=== PATIENT | male | born 1990 | race Caucasian/White ===

== ENCOUNTER 2018-03-10 18:56 | Emergency (ER) | payer SELFPAY ==
--- NOTE | 2018-03-10 19:54 | RAD REPORT ---
EXAM DESCRIPTION: RAD - Hand Right 3 View - 03/10/2018 7:45 pm CLINICAL HISTORY: Pain and swelling, fourth digit. COMPARISON: None. FINDINGS: Tuft fracture is present involving the distal fourth digit. Mild soft tissue swelling is p resent.
--- NOTE | 2018-03-10 20:00 | ER ---
Nurse's Notes [facility] Name: Patrick Randolph Jr Age: 27 yrs Sex: Male : 1990 Arrival Date: 03/10/2018 Time: 18:57 Bed 12 Private MD: Diagnosis: Nondisplaced fracture of distal phalanx of finger-tuft Presentation: 03/10 19:22 Presenting complaint: Patient states: "I smashed my finger tip (right ringer) at work lk1 today between a took and a piece of pipe. I thought it was fine, but now its turning black and its cold. I can feel a lot of pressure in my hand.". Transition of care: patient was not received from another setting of care. Onset of symptoms was March 10, 2018 at 09:00. Initial Sepsis Screen: Does the patient meet any 2 criteria? No. Patient's initial sepsis screen is negative. Does the patient have a suspected source of infection? No. Patient's initial sepsis screen is negative. Care prior to arrival: None. 19:22 Method Of Arrival: Ambulatory lk1 19:22 Acuity: JUANIAT 3 lk1 Triage Assessment: 19:24 General: Appears in no apparent distress. Behavior is calm, cooperative, appropriate lk1 for age. Pain: Complains of pain in palmar aspect of distal phalanx of right ring finger Pain currently is 7 out of 10 on a pain scale. Musculoskeletal: Swelling present in palmar aspect of distal phalanx of right ring finger. Injury Description: Crush injury sustained to palmar aspect of distal phalanx of right ring finger. Historical: - Allergies: 19:24 No Known Allergies; lk1 - PMHx: 19:24 anger issues; lk1 - PSHx: 19:24 None; lk1 - Immunization history:: Adult Immunizations up to date. - Social history:: Smoking status: Patient/guardian denies using tobacco. Screenin:00 Abuse screen: Denies threats or abuse. Denies injuries from another. Nutritional aj1 screening: No deficits noted. Tuberculosis screening: No symptoms or risk factors identified. 20:33 Fall Risk None identified. aj1 Assessment: 20:00 General: Appears in no apparent distress. uncomfortable, Behavior is calm, cooperative, aj1 appropriate for age. Pain: Complains of pain in palmar aspect of distal phalanx of right ring finger Pain does not radiate. Pain currently is 10 out of 10 on a pain scale. Quality of pain is described as pressure, throbbing. Neuro: Level of Consciousness is awake, alert, obeys commands, Oriented to person, place, time, situation, Speech is normal, Facial symmetry appears normal. Cardiovascular: Patient's skin is warm and dry. Respiratory: Airway is patent Respiratory effort is even, unlabored, Respiratory pattern is regular, symmetrical. GI: No signs and/or symptoms were reported involving the gastrointestinal system. : No signs and/or symptoms were reported regarding the genitourinary system. EENT: No signs and/or symptoms were reported regarding the EENT system. Derm: Bruising that is dark purple, on palmar aspect of distal phalanx of right ring finger swelling noted to palmar aspect of distal phalanx of right ring finger. Musculoskeletal: Range of motion: limited in DIP of right ring finger. Vital Signs: 19:25 BP 139 / 90; Pulse 78; Resp 14; Temp 97.9(TE); Pulse Ox 99% on R/A; Weight 71.67 kg lk1 (R); Height 5 ft. 7 in. (170.18 cm) (R); Pain 7/10; 19:25 Body Mass Index 24.75 (71.67 kg, 170.18 cm) lk1 ED Course: 18:57 Patient arrived in ED. sb2 19:23 Triage completed. lk1 19:26 Arm band placed on right wrist. lk1 19:42 Patient moved to radiology. bb2 19:42 X-ray completed. Patient tolerated procedure well. bb2 19:42 Hand Right 3 View XRAY In Process Unspecified. EDMS 19:44 Patient moved back from radiology. bb2 19:50 Ben Ambrose MD is Attending Physician. snw 19:50 [facility]C [facility] snw 19:51 Cindy Claros RN is Primary Nurse. aj1 20:00 Patient has correct armband on for positive identification. Bed in low position. Call aj1 light in reach. Side rails up X 1. 20:00 No provider procedures requiring assistance completed. Patient did not have IV access aj1 during this emergency room visit. finger splint applied to right ring finger. Administered Medications: 20:15 Drug: [place] 10 mg-325 mg 1 tabs Route: PO; aj1 20:29 Follow up: Response: No adverse reaction aj1 Outcome: 19:58 Discharge ordered by . ann 20:33 Discharged to home ambulatory. aj1 20:33 Condition: good 20:33 Discharge instructions given to patient, Instructed on discharge instructions, follow up and referral plans. medication usage, Demonstrated understanding of instructions, follow-up care, medications, Prescriptions given X 1. 20:33 Patient left the ED. aj1 Signatures: Dispatcher [employer] EDCindy Ramos, RN RN aj1 Asha Hayden, TECHNICAL STENOGRAPHER-C TECHNICAL STENOGRAPHER-Csnw Shante Lopez RN RN lk1 Paulina Ortiz bb2 Paola Kauffman2
--- NOTE | 2018-03-10 20:00 | EDPHYS ---
Physician Documentation [facility] Name: Patrick Randolph Jr Age: 27 yrs Sex: Male : 1990 Arrival Date: 03/10/2018 Time: 18:57 Bed 12 Private MD: ED Physician Ben Ambrose HPI: 03/10 20:08 This 27 yrs old Male presents to ER via Ambulatory with complaints of Finger snw Injury. 20:08 The patient or guardian reports a contusion, swelling, tenderness. The complaints snw affect the palmar aspect of distal phalanx of right ring finger. Context: The problem was sustained at work, resulted from a crush injury. Onset: The symptoms/episode began/occurred suddenly, today. Associated signs and symptoms: The patient has no apparent associated signs or symptoms. Severity of symptoms: At their worst the symptoms were severe. The patient has not experienced similar symptoms in the past. It is unknown whether or not the patient has recently seen a physician. Historical: - Allergies: 19:24 No Known Allergies; lk1 - PMHx: 19:24 anger issues; lk1 - PSHx: 19:24 None; lk1 - Immunization history:: Adult Immunizations up to date. - Social history:: Smoking status: Patient/guardian denies using tobacco. ROS: 20:03 Constitutional: Negative for fever, chills, and weight loss, Eyes: Negative for injury, snw pain, redness, and discharge, ENT: Negative for injury, pain, and discharge, Neck: Negative for injury, pain, and swelling, Cardiovascular: Negative for chest pain, palpitations, and edema, Respiratory: Negative for shortness of breath, cough, wheezing, and pleuritic chest pain, Abdomen/GI: Negative for abdominal pain, nausea, vomiting, diarrhea, and constipation, Back: Negative for injury and pain, : Negative for injury, bleeding, discharge, and swelling, Skin: Negative for injury, rash, and discoloration, Neuro: Negative for headache, weakness, numbness, tingling, and seizure. 20:03 MS/extremity: Positive for injury or acute deformity, ecchymosis, pain, of the palmar aspect of distal phalanx of right ring finger. Exam: 20:01 Constitutional: This is a well developed, well nourished patient who is awake, alert, snw and in no acute distress. Head/Face: Normocephalic, atraumatic. Eyes: Pupils equal round and reactive to light, extra-ocular motions intact. Lids and lashes normal. Conjunctiva and sclera are non-icteric and not injected. Cornea within normal limits. Periorbital areas with no swelling, redness, or edema. ENT: Nares patent. No nasal discharge, no septal abnormalities noted. Tympanic membranes are normal and external auditory canals are clear. Oropharynx with no redness, swelling, or masses, exudates, or evidence of obstruction, uvula midline. Mucous membranes moist. Neck: Trachea midline, no thyromegaly or masses palpated, and no cervical lymphadenopathy. Supple, full range of motion without nuchal rigidity, or vertebral point tenderness. No Meningismus. Chest/axilla: Normal chest wall appearance and motion. Nontender with no deformity. No lesions are appreciated. Cardiovascular: Regular rate and rhythm with a normal S1 and S2. No gallops, murmurs, or rubs. Normal PMI, no JVD. No pulse deficits. Respiratory: Lungs have equal breath sounds bilaterally, clear to auscultation and percussion. No rales, rhonchi or wheezes noted. No increased work of breathing, no retractions or nasal flaring. Abdomen/GI: Soft, non-tender, with normal bowel sounds. No distension or tympany. No guarding or rebound. No evidence of tenderness throughout. Back: No spinal tenderness. No costovertebral tenderness. Full range of motion. MS/ Extremity: Pulses equal, no cyanosis. Clubbing of all fingers, purple ecchymosis to fourth right fingertip. tenderness. Neurovascular intact. Full, normal range of motion. Neuro: Awake and alert, GCS 15, oriented to person, place, time, and situation. Cranial nerves II-XII grossly intact. Motor strength 5/5 in all extremities. Sensory grossly intact. Cerebellar exam normal. Normal gait. Psych: Awake, alert, with orientation to person, place and time. Behavior, mood, and affect are within normal limits. Vital Signs: 19:25 BP 139 / 90; Pulse 78; Resp 14; Temp 97.9(TE); Pulse Ox 99% on R/A; Weight 71.67 kg lk1 (R); Height 5 ft. 7 in. (170.18 cm) (R); Pain 7/10; 19:25 Body Mass Index 24.75 (71.67 kg, 170.18 cm) lk1 MDM: 19:50 Patient medically screened. snw 20:07 Data reviewed: vital signs, nurses notes. Data interpreted: Pulse oximetry: on room air snw is 99 %. Interpretation: normal. Counseling: I had a detailed discussion with the patient and/or guardian regarding: the historical points, exam findings, and any diagnostic results supporting the discharge/admit diagnosis, the presence of at least one elevated blood pressure reading (>120/80) during this emergency department visit, radiology results, the need for outpatient follow up, to return to the emergency department if symptoms worsen or persist or if there are any questions or concerns that arise at home. Special discussion: I have referred the patient to see his PCP for further evaluation of high blood pressure. Based on the history and exam findings, there is no indication for further emergent testing or inpatient evaluation. I discussed with the patient/guardian the need to see the orthopedic surgeon for further evaluation of the symptoms. I discussed with the patient/guardian the need to see the primary care provider for further evaluation of the symptoms. 03/10 19:27 Order name: Hand Right 3 View XRAY; Complete Time: 19:57 lk1 03/10 19:58 Order name: Splint - Finger; Complete Time: 20:15 snw Administered Medications: 20:15 Drug: [place] 10 mg-325 mg 1 tabs Route: PO; aj1 20:29 Follow up: Response: No adverse reaction aj1 Disposition: 03/10/18 19:58 Discharged to Home. Impression: Nondisplaced fracture of distal phalanx of finger - tuft. - Condition is Stable. - Discharge Instructions: Elastic Bandage and RICE, Cast or Splint Care, Crush Injury, Fingers or Toes, Finger Fracture. - Prescriptions for Motrin IB 200 mg Oral Tablet - take 2 tablet by ORAL route every 6 hours As needed as needed with food; 40 tablet. - Work release form, Medication Reconciliation Form, Thank You Letter, Antibiotic Education, Prescription Opioid Use form. - Follow up: Private Physician; When: 2 - 3 days; Reason: Recheck today's complaints, Continuance of care, Re-evaluation by your physician. Follow up: Emergency Department; When: As needed; Reason: Worsening of condition. Addendum: 03/13/2018 07:40 Co-signature as Attending Physician, Ben Ambrose MD I agree with the assessment and c lima plan of care. Signatures: Dispatcher [employer] Cindy Rivas, RN RN aj1 Ben Ambrose MD MD cha Therrien, Shelly, SUGAR TRUCKER-C SUGAR TRUCKER-Csnw Shante Lopez, RN RN lk1 Corrections: (The following items were deleted from the chart) 03/10 20:33 19:58 03/10/2018 19:58 Discharged to Home. Impression: Nondisplaced fracture of distal aj1 phalanx of finger - tuft. Condition is Stable. Forms are Medication Reconciliation Form, Thank You Letter, Antibiotic Education, Prescription Opioid Use. Follow up: Private Physician; When: 2 - 3 days; Reason: Recheck today's complaints, Continuance of care, Re-evaluation by your physician. Follow up: Emergency Department; When: As needed; Reason: Worsening of condition. snw
[2018-03-10] MEDS ORDERED: HYDROCODONE/APAP 10/325 TAB ONE (20:04)
== END 2018-03-10 20:33 | disposition home or self-care (01) ==
LOC: ER 18:56
DX: S62.664A Nondisplaced fracture of distal phalanx of right ring finger, initial encounter for closed fracture (principal); W23.0XXA Caught, crushed, jammed, or pinched between moving objects, initial encounter; Y93.89 Activity, other specified; Y92.69 Other specified industrial and construction area as the place of occurrence of the external cause; Y99.0 Civilian activity done for income or pay
CPT/HCPCS: 99284

== ENCOUNTER 2018-06-20 18:42 | Emergency (ER) | payer SELFPAY ==
[2018-06-20] MEDS ORDERED: CLINDAMYCIN HCL 150 MG CAP ONE (20:08)
[2018-06-20] MEDS ORDERED: KETOROLAC 30 MG/ML INJ ONE (20:08)
--- NOTE | 2018-06-20 20:17 | ER ---
Nurse's Notes [facility] Name: Patrick Randolph Jr Age: 28 yrs Sex: Male : 1990 Arrival Date: 06/20/2018 Time: 18:49 Bed 12 Private MD: GIULIANA PEREZ Diagnosis: Otitis externa Presentation: 06/20 18:56 Presenting complaint: Patient states: Left ear pain since , patient states ear lp1 is hot to touch, pain worsening; Denies any fever. Transition of care: patient was not received from another setting of care. Onset of symptoms was June 20, 2018. Risk Assessment: Do you want to hurt yourself or someone else? Patient reports no desire to harm self or others. Initial Sepsis Screen: Does the patient meet any 2 criteria? No. Patient's initial sepsis screen is negative. Does the patient have a suspected source of infection? No. Patient's initial sepsis screen is negative. Care prior to arrival: None. 18:56 Method Of Arrival: Ambulatory lp1 18:56 Acuity: JUANITA 5 lp1 Historical: - Allergies: 18:59 No Known Allergies; lp1 - Home Meds: 18:59 Fluoxetine Oral [Active]; lp1 - PMHx: 18:59 anger issues; lp1 - PSHx: 18:59 None; lp1 - Immunization history:: Adult Immunizations up to date. - Social history:: Smoking status: Patient/guardian denies using tobacco. - Ebola Screening: : No symptoms or risks identified at this time. Screenin:05 Abuse screen: Denies threats or abuse. Denies injuries from another. Nutritional aj screening: No deficits noted. Tuberculosis screening: No symptoms or risk factors identified. Fall Risk None identified. Assessment: 19:05 General: Appears in no apparent distress. comfortable, Behavior is calm, cooperative, aj appropriate for age. Pain: Complains of pain in left ear. Neuro: Level of Consciousness is awake, alert, obeys commands, Oriented to person, place, time, situation, Appropriate for age. Respiratory: Airway is patent Respiratory effort is even, unlabored, Respiratory pattern is regular, symmetrical. EENT: Reports pain in left ear. Derm: Skin is intact, is healthy with good turgor, Skin is pink, warm \T\ dry. normal. 20:28 Reassessment: Patient appears in no apparent distress at this time. No changes from aj previously documented assessment. Patient and/or family updated on plan of care and expected duration. Pain level reassessed. Patient is alert, oriented x 3, equal unlabored respirations, skin warm/dry/pink. Patient states feeling better. Patient states symptoms have improved. Vital Signs: 18:58 BP 147 / 92; Pulse 67; Resp 16; Temp 98.1(O); Pulse Ox 97% on R/A; Weight 71.67 kg; lp1 Height 5 ft. 7 in. (170.18 cm); Pain 8/10; 20:28 BP 141 / 87; Pulse 67; Resp 19; Pulse Ox 99% on R/A; aj 18:58 Body Mass Index 24.75 (71.67 kg, 170.18 cm) lp1 ED Course: 18:49 Patient arrived in ED. sb2 18:49 GIULIANA PEREZ is Private Physician. sb2 18:57 Triage completed. lp1 18:57 Arm band placed on left wrist. lp1 19:00 Peyton Monk RN is Primary Nurse. aj 19:05 Patient has correct armband on for positive identification. aj 19:05 No provider procedures requiring assistance completed. aj 19:20 Alfonso Tabor MD is Attending Physician. tw4 20:16 GIULIANA PEREZ is Referral Physician. tw4 20:28 Patient did not have IV access during this emergency room visit. aj Administered Medications: 20:08 Drug: TORadol 60 mg Route: IM; Site: left gluteus; aj 20:29 Follow up: Response: Pain is decreased aj 20:08 Drug: Cleocin 300 mg Route: PO; aj 20:29 Follow up: Response: No adverse reaction aj Outcome: 20:17 Discharge ordered by . tw4 20:28 Discharged to home ambulatory, with friend. aj 20:28 Condition: good 20:28 Discharge instructions given to patient, family, Instructed on discharge instructions, follow up and referral plans. medication usage, Demonstrated understanding of instructions, follow-up care, medications, Prescriptions given X 2. 20:29 Patient left the ED. aj Signatures: Peyton Monk, RN RN aj Zoraida Cardenas RN RN 1 Alfonso Tabor MD MD tw4 Paola Kauffman 2
--- NOTE | 2018-06-20 20:17 | EDPHYS ---
Physician Documentation [facility] Name: Patrick Randolph Jr Age: 28 yrs Sex: Male : 1990 Arrival Date: 06/20/2018 Time: 18:49 Bed 12 Private MD: GIULIANA PEREZ ED Physician Alfonso Tabor HPI: 06/20 20:13 This 28 yrs old Male presents to ER via Ambulatory with complaints of Ear tw4 Pain. 20:13 The patient presents with pain, that is acute. The complaints affect the left ear. tw4 Onset: The symptoms/episode began/occurred 5 day(s) ago. Modifying factors: The symptoms are alleviated by nothing, the symptoms are aggravated by nothing. Associated signs and symptoms: The patient has no apparent associated signs or symptoms. Severity of symptoms: At their worst the symptoms were moderate in the emergency department the symptoms are unchanged. The patient has not experienced similar symptoms in the past. Historical: - Allergies: 18:59 No Known Allergies; lp1 - Home Meds: 18:59 Fluoxetine Oral [Active]; lp1 - PMHx: 18:59 anger issues; lp1 - PSHx: 18:59 None; lp1 - Immunization history:: Adult Immunizations up to date. - Social history:: Smoking status: Patient/guardian denies using tobacco. - Ebola Screening: : No symptoms or risks identified at this time. ROS: 20:13 Constitutional: Negative for fever, chills, and weight loss, Cardiovascular: Negative tw4 for chest pain, palpitations, and edema, Respiratory: Negative for shortness of breath, cough, wheezing, and pleuritic chest pain, Abdomen/GI: Negative for abdominal pain, nausea, vomiting, diarrhea, and constipation. 20:13 ENT: Positive for ear pain, Negative for injury or acute deformity, drainage from ear(s), Teeth pain tinnitus, nasal discharge, rhinorrhea. Exam: 20:13 Constitutional: This is a well developed, well nourished patient who is awake, alert, tw4 and in no acute distress. Head/Face: Normocephalic, atraumatic. 20:13 Cardiovascular: Regular rate and rhythm with a normal S1 and S2. No gallops, murmurs, or rubs. Normal PMI, no JVD. No pulse deficits. Respiratory: Lungs have equal breath sounds bilaterally, clear to auscultation and percussion. No rales, rhonchi or wheezes noted. No increased work of breathing, no retractions or nasal flaring. Abdomen/GI: Soft, non-tender, with normal bowel sounds. No distension or tympany. No guarding or rebound. No evidence of tenderness throughout. 20:13 ENT: External ear(s): are unremarkable, Ear canal(s): erythema, that is moderate, of the left canal. Vital Signs: 18:58 BP 147 / 92; Pulse 67; Resp 16; Temp 98.1(O); Pulse Ox 97% on R/A; Weight 71.67 kg; lp1 Height 5 ft. 7 in. (170.18 cm); Pain 8/10; 20:28 BP 141 / 87; Pulse 67; Resp 19; Pulse Ox 99% on R/A; aj 18:58 Body Mass Index 24.75 (71.67 kg, 170.18 cm) lp1 MDM: 19:20 Patient medically screened. tw4 20:13 Differential diagnosis: otitis media, otitis externa, ruptured TM. Data reviewed: vital tw4 signs, nurses notes. Counseling: I had a detailed discussion with the patient and/or guardian regarding: the historical points, exam findings, and any diagnostic results supporting the discharge/admit diagnosis. Special discussion: I discussed with the patient/guardian in detail that at this point there is no indication for admission to the hospital. It is understood, however, that if the symptoms persist or worsen the patient needs to return immediately for re-evaluation. Administered Medications: 20:08 Drug: TORadol 60 mg Route: IM; Site: left gluteus; aj 20:29 Follow up: Response: Pain is decreased aj 20:08 Drug: Cleocin 300 mg Route: PO; aj 20:29 Follow up: Response: No adverse reaction aj Disposition: 06/20/18 20:17 Discharged to Home. Impression: Otitis externa. - Condition is Stable. - Discharge Instructions: Otitis Externa. - Prescriptions for Augmentin 875- 125 mg Oral Tablet - take 1 tablet by ORAL route every 12 hours for 10 days; 20 tablet. Ibuprofen 800 mg Oral Tablet - take 1 tablet by ORAL route every 8 hours As needed take with food; 30 tablet. - Medication Reconciliation Form, Thank You Letter, Antibiotic Education, Prescription Opioid Use form. - Follow up: GIULIANA PEREZ; When: Upon discharge from the Emergency Department; Reason: Further diagnostic work-up, Recheck today's complaints, Continuance of care. - Problem is new. - Symptoms have improved. Signatures: Peyton Monk, RN RN Zoraida Workman RN RN lp1 Alfonso Tabor MD MD tw4 Corrections: (The following items were deleted from the chart) 20:29 20:17 06/20/2018 20:17 Discharged to Home. Impression: Otitis externa. Condition is aj Stable. Forms are Medication Reconciliation Form, Thank You Letter, Antibiotic Education, Prescription Opioid Use. Follow up: GIULIANA PEREZ; When: Upon discharge from the Emergency Department; Reason: Further diagnostic work-up, Recheck today's complaints, Continuance of care. Problem is new. Symptoms have improved. tw4
== END 2018-06-20 20:29 | disposition home or self-care (01) ==
LOC: ER 18:42
DX: H60.92 Unspecified otitis externa, left ear (principal)
CPT/HCPCS: 96372; 99283

== ENCOUNTER 2018-07-30 18:30 | Emergency (ER) | payer SELFPAY ==
[2018-07-30] MEDS ORDERED: ONDANSETRON 4 MG/2 ML VIAL ONE (19:37)
[2018-07-30] MEDS ORDERED: MORPHINE 4 MG/ML SYR ONE (19:37)
[2018-07-30 20:00] LABS: Absolute Lymphocytes (CBC) 2.7 K/uL (0.7-4.9); Absolute Monocytes 0.7 K/uL (0.1-1.3); Basophils % 0.7 % (0-1.3); Lymphocytes % 34.8 % (15.3-44.8); MCH 32.5 pg (27.0-35.0); MCV 94.5 fL (80-100); MPV 8.2 fL (7.6-11.3); Monocytes % 9.1 % (3.3-12.3); RBC Red Blood Cell Count 4.24 M/uL (4.33-5.43)
[2018-07-30 20:08] LABS: ALT/SGPT 27 U/L (12-78); AST/SGOT 15 U/L (15-37); Albumin 3.6 g/dL (3.4-5.0); Alkaline Phosphatase 66 U/L (45-117); BUN Blood Urea Nitrogen 11 mg/dL (7-18); Bicarbonate 29 mmol/L (21-32); Bilirubin Direct < 0.1 mg/dL (0-0.2); Bilirubin Total 0.2 mg/dL (0.2-1.0); Glucose Level 86 mg/dL (74-106); Lipase 115 U/L (73-393); Potassium 4.3 mmol/L (3.5-5.1); Protein, Total 7.3 g/dL (6.4-8.2); Sodium Level 141 mmol/L (136-145)
[2018-07-30 20:31] LABS: Urine Blood NEGATIVE (NEG); Urine Glucose NEGATIVE (NEG); Urine Protein NEGATIVE (NEG); Urine Specific Gravity 1.025 (1.005-1.030)
--- NOTE | 2018-07-30 20:57 | RAD REPORT ---
EXAM DESCRIPTION: CTAbdomen Pelvis W Contrast - 07/30/2018 8:48 pm CLINICAL HISTORY: Abdominal pain. diarrhea;Abd pain;Nausea / vomiting COMPARISON: No comparisons TECHNIQUE: Biphasic CT imaging of the abdomen and pelvis was performed with 100 ml non-ionic IV cont rast. All CT scans are performed using dose optimization technique as appropriate and may include automated exposure control or mA/KV adjustment according to patient size. FINDINGS: The lung bases are clear. The liver, spleen, pancreas, adrenal glands and kidneys are within normal limits. No bowel obstruction, free air, free fluid or abscess. Mild thickening of the cecum, ascending colon and transverse colon is seen compatible with mild colitis. No pneumatosis seen. The appendix is gus l. No evidence of significant lymphadenopathy. No suspicious bony findings. IMPRESSION: Mild right-sided colitis.
[2018-07-30] MEDS ORDERED: KETOROLAC 30 MG/ML INJ ONE (21:33)
--- NOTE | 2018-07-30 21:56 | ER ---
Nurse's Notes [facility] Name: Patrick Randolph Jr Age: 28 yrs Sex: Male : 1990 Arrival Date: 07/30/2018 Time: 18:31 Bed 5 Private MD: Diagnosis: Colitis Presentation: 07/30 18:41 Presenting complaint: Patient states: Abd pain, diarrhea, vomiting for the last 3 days. la1 Transition of care: patient was not received from another setting of care. Onset of symptoms was July 30, 2018. Risk Assessment: Do you want to hurt yourself or someone else? Patient reports no desire to harm self or others. Initial Sepsis Screen: Does the patient meet any 2 criteria? No. Patient's initial sepsis screen is negative. Does the patient have a suspected source of infection? No. Patient's initial sepsis screen is negative. Care prior to arrival: None. 18:41 Method Of Arrival: Ambulatory la1 18:41 Acuity: JUANITA 3 la1 Historical: - Allergies: 18:42 No Known Allergies; la1 - PMHx: 18:42 anger issues; la1 - PSHx: 18:42 None; la1 - Immunization history:: Adult Immunizations up to date. - Social history:: Smoking status: Patient uses tobacco products, smokes one pack cigarettes per day. - Ebola Screening: : No symptoms or risks identified at this time. Screenin:00 Abuse screen: Denies threats or abuse. Nutritional screening: No deficits noted. ea Tuberculosis screening: No symptoms or risk factors identified. Fall Risk None identified. Assessment: 19:25 General: Appears in no apparent distress. Behavior is calm, cooperative, appropriate ea for age. Pain: Complains of pain in epigastric area, right upper quadrant and left upper quadrant Pain currently is 7 out of 10 on a pain scale. Quality of pain is described as aching, Pain began april. Neuro: Level of Consciousness is awake, alert, obeys commands, Oriented to person, place, time. Cardiovascular: Patient's skin is warm and dry. Respiratory: Airway is patent Respiratory effort is even, unlabored, Respiratory pattern is regular, symmetrical. GI: Bowel sounds present X 4 quads. Abd is soft X 4 quads Abdomen is tender to palpation in right upper quadrant and left upper quadrant Reports diarrhea, since Tuesday. Derm: Skin is pink, warm \T\ dry. 20:48 Reassessment: Patient and/or family updated on plan of care and expected duration. Pain ea level reassessed. Patient is alert, oriented x 3, equal unlabored respirations, skin warm/dry/pink. 21:40 Reassessment: Patient appears in no apparent distress at this time. Patient and/or ao family updated on plan of care and expected duration. Pain level reassessed. Patient is alert, oriented x 3, equal unlabored respirations, skin warm/dry/pink. 22:40 Reassessment: Patient appears in no apparent distress at this time. Patient and/or ao family updated on plan of care and expected duration. Pain level reassessed. Patient is alert, oriented x 3, equal unlabored respirations, skin warm/dry/pink. 23:01 Reassessment: DC instructions given to patient and significant other. Patient agree ao with the POC and to follow up with PCP. Vital Signs: 18:42 BP 131 / 88; Pulse 74; Resp 16; Temp 98.6; Pulse Ox 98% on R/A; Weight 71.21 kg; Height la1 5 ft. 7 in. (170.18 cm); 19:27 BP 137 / 89; Pulse 76; Resp 16; Pulse Ox 100% ; ea 20:48 BP 121 / 85; Pulse 70; Resp 18; Pulse Ox 99% on R/A; ea 21:45 BP 134 / 82; Pulse 81; Resp 16; Pulse Ox 99% on R/A; ao 22:45 BP 122 / 83; Pulse 72; Resp 18; Pulse Ox 99% on R/A; ao 18:42 Body Mass Index 24.59 (71.21 kg, 170.18 cm) la1 ED Course: 18:31 Patient arrived in ED. as 18:41 Triage completed. la1 18:42 Arm band placed on right wrist. la1 18:54 Ben Hatfield PA is PHCP. cp 18:54 Omar Smyth MD is Attending Physician. cp 19:05 Inserted saline lock: 20 gauge in right antecubital area, using aseptic technique. jb5 Blood collected. 19:09 Basic Metabolic Panel Sent. jb5 19:09 CBC with Diff Sent. jb5 19:09 Creatinine for Radiology Sent. jb5 19:09 Hepatic Function Sent. jb5 19:09 Lipase Sent. jb5 19:22 Langford, Lex, RN is Primary Nurse. ao 19:57 Urine Dipstick--Ancillary (enter results) Sent. jb5 19:57 Basic Metabolic Panel Sent. jb5 19:57 CBC with Diff Sent. jb5 19:57 Creatinine for Radiology Sent. jb5 19:57 Hepatic Function Sent. jb5 19:57 Lipase Sent. jb5 20:00 Patient has correct armband on for positive identification. Bed in low position. Call ea light in reach. 20:48 CT Abd/Pelvis - W/Contrast In Process Unspecified. EDMS 20:48 CT completed. Patient moved to CT via wheelchair. Patient moved back from CT. cw1 21:55 Lawrence Prajapati MD is Referral Physician. cp 22:59 No provider procedures requiring assistance completed. IV discontinued, intact, ao bleeding controlled, No redness/swelling at site. Pressure dressing applied. Administered Medications: 19:40 Drug: morphine 2 mg Route: IVP; Site: right antecubital; ea 20:15 Follow up: Response: No adverse reaction; Pain is decreased ea 19:40 Drug: Zofran 4 mg Route: IVP; Site: right antecubital; ea 20:15 Follow up: Response: No adverse reaction ea 21:31 Drug: TORadol 30 mg Route: IVP; Site: right antecubital; ea 23:03 Follow up: Response: No adverse reaction ao 22:14 Drug: Cipro 500 mg Route: PO; ao 23:04 Follow up: Response: No adverse reaction ao 22:14 Drug: Tylenol #3 (300 mg-30 mg) 2 tabs Route: PO; ao 23:04 Follow up: Response: No adverse reaction ao 22:15 Drug: metroNIDAZOLE 500 mg Volume: 100 ml; Route: IVPB; Infused Over: 30 mins; Site: ao right antecubital; 22:58 Follow up: IV Status: Completed infusion; IV Intake: 100ml ao Intake: 22:58 IV: 100ml; Total: 100ml. ao Outcome: 21:56 Discharge ordered by . cp 22:59 Discharged to home ambulatory. ao 22:59 Condition: stable 22:59 Discharge instructions given to patient, significant other, Instructed on discharge instructions, follow up and referral plans. Demonstrated understanding of instructions, follow-up care, medications, Prescriptions given X 4. 23:02 Patient left the ED. ao Signatures: Dispatcher [employer] Christina Huff Crystal cw1 Marquez Castro RN RN la1 Ben Hatfield PA PA cp Ortiz, Alex RN RN Maggie Webster Elena, RN RN ea
--- NOTE | 2018-07-30 21:57 | EDPHYS ---
Physician Documentation [facility] Name: Patrick Randolph Jr Age: 28 yrs Sex: Male : 1990 Arrival Date: 07/30/2018 Time: 18:31 Bed 5 Private MD: ED Physician Omar Smyth HPI: 07/30 19:15 This 28 yrs old Male presents to ER via Ambulatory with complaints of cp Abdominal Pain. 19:15 The patient presents with abdominal pain in the upper abdomen. cp 19:15 Onset: The symptoms/episode began/occurred 3 day(s) ago. Associated signs and symptoms: cp Pertinent positives: nausea, vomiting, and diarrhea, Pertinent negatives: blood in stools, chest pain, constipation, fever, testicular pain, vomiting blood. Historical: - Allergies: 18:42 No Known Allergies; la1 - PMHx: 18:42 anger issues; la1 - PSHx: 18:42 None; la1 - Immunization history:: Adult Immunizations up to date. - Social history:: Smoking status: Patient uses tobacco products, smokes one pack cigarettes per day. - Ebola Screening: : No symptoms or risks identified at this time. ROS: 19:20 Constitutional: Negative for body aches, chills, fever, poor PO intake. cp 19:20 Eyes: Negative for injury, pain, redness, and discharge. cp 19:20 ENT: Negative for drainage from ear(s), ear pain, sore throat, difficulty swallowing, difficulty handling secretions. 19:20 Cardiovascular: Negative for chest pain, edema, palpitations. 19:20 Respiratory: Negative for cough, shortness of breath, wheezing. 19:20 Abdomen/GI: Positive for abdominal pain, nausea, vomiting, and diarrhea, Negative for constipation, anorexia, black/tarry stool, rectal bleeding. 19:20 Back: Negative for pain at rest, pain with movement. 19:20 : Negative for urinary symptoms, testicular pain 19:20 Skin: Negative for cellulitis, rash. 19:20 Neuro: Negative for altered mental status, headache, weakness. 19:20 All other systems are negative. Exam: 19:25 Constitutional: The patient appears in no acute distress, alert, awake, non-toxic, well cp developed, well nourished. 19:25 Head/Face: Normocephalic, atraumatic. cp 19:25 Eyes: Periorbital structures: appear normal, Conjunctiva: normal, no exudate, no injection, Sclera: no appreciated abnormality, Lids and lashes: appear normal, bilaterally. 19:25 ENT: External ear(s): are unremarkable, Nose: is normal, Mouth: Lips: moist, Oral mucosa: pink and intact, moist, Posterior pharynx: is normal, airway is patent, no erythema, no exudate. 19:25 Neck: ROM/movement: is normal, is supple, without pain, no range of motions limitations, no nuchal rigidity. 19:25 Chest/axilla: Inspection: normal, Palpation: is normal, no crepitus, no tenderness. 19:25 Cardiovascular: Rate: normal, Rhythm: regular. 19:25 Respiratory: the patient does not display signs of respiratory distress, Respirations: normal, no use of accessory muscles, no retractions, no splinting, no tachypnea, labored breathing, is not present, Breath sounds: are clear throughout, no decreased breath sounds, no stridor, no wheezing. 19:25 Abdomen/GI: Inspection: abdomen appears normal, Bowel sounds: active, all quadrants, Palpation: soft, in all quadrants, moderate abdominal tenderness, in the right upper quadrant and left upper quadrant, rebound tenderness, is not appreciated, involuntary guarding, is not appreciated. 19:25 Back: CVA tenderness, is absent. 19:25 Skin: cellulitis, is not appreciated, no rash present. 19:25 Neuro: Orientation: to person, place \T\ time. Mentation: lucid, able to follow commands, Cerebellar function: is grossly normal, Motor: moves all fours, strength is normal, Sensation: no obvious gross deficits. Vital Signs: 18:42 BP 131 / 88; Pulse 74; Resp 16; Temp 98.6; Pulse Ox 98% on R/A; Weight 71.21 kg; Height la1 5 ft. 7 in. (170.18 cm); 19:27 BP 137 / 89; Pulse 76; Resp 16; Pulse Ox 100% ; ea 20:48 BP 121 / 85; Pulse 70; Resp 18; Pulse Ox 99% on R/A; ea 21:45 BP 134 / 82; Pulse 81; Resp 16; Pulse Ox 99% on R/A; ao 22:45 BP 122 / 83; Pulse 72; Resp 18; Pulse Ox 99% on R/A; ao 18:42 Body Mass Index 24.59 (71.21 kg, 170.18 cm) la1 MDM: 18:54 Patient medically screened. cp 20:00 Differential diagnosis: appendicitis, cholecystitis, Cholelithiasis, diverticulitis, cp gastritis, GI Bleed, pancreatitis, Peptic Ulcer Disease, Perf. Duodenal Ulcer, Perf. Gastric Ulcer, Ureterolithiasis, urinary tract infection, colitis. 21:55 Data reviewed: vital signs, nurses notes, lab test result(s), radiologic studies, CT cp scan. 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 Response to treatment: the patient's symptoms have markedly improved after treatment, Pain and nausea improved. Will discharge to home for continued monitoring. 07/30 19:00 Order name: Basic Metabolic Panel; Complete Time: 20:09 cp 07/30 19:00 Order name: CBC with Diff; Complete Time: 20:09 cp 07/30 20:09 Interpretation: Normal except: RBC 4.24; MCV 94.5; EOSINOPHIL % 5.0. cp 07/30 19:00 Order name: Creatinine for Radiology; Complete Time: 20:09 cp 07/30 19:00 Order name: Hepatic Function; Complete Time: 20:09 cp 07/30 19:00 Order name: Lipase; Complete Time: 20:09 cp 07/30 19:52 Order name: Urine Dipstick--Ancillary (enter results); Complete Time: 20:58 cc 07/30 19:00 Order name: CT Abd/Pelvis - W/Contrast; Complete Time: 20:58 cp 07/30 20:59 Order name: Stool Culture cp 07/30 20:59 Order name: CDIFF cp 07/30 19:00 Order name: IV Saline Lock; Complete Time: 19:09 cp 07/30 19:00 Order name: Labs collected and sent; Complete Time: 19:09 cp 07/30 19:00 Order name: Urine Dipstick-Ancillary (obtain specimen); Complete Time: 19:50 cp Administered Medications: 19:40 Drug: morphine 2 mg Route: IVP; Site: right antecubital; ea 20:15 Follow up: Response: No adverse reaction; Pain is decreased ea 19:40 Drug: Zofran 4 mg Route: IVP; Site: right antecubital; ea 20:15 Follow up: Response: No adverse reaction ea 21:31 Drug: TORadol 30 mg Route: IVP; Site: right antecubital; ea 23:03 Follow up: Response: No adverse reaction ao 22:14 Drug: Cipro 500 mg Route: PO; ao 23:04 Follow up: Response: No adverse reaction ao 22:14 Drug: Tylenol #3 (300 mg-30 mg) 2 tabs Route: PO; ao 23:04 Follow up: Response: No adverse reaction ao 22:15 Drug: metroNIDAZOLE 500 mg Volume: 100 ml; Route: IVPB; Infused Over: 30 mins; Site: ao right antecubital; 22:58 Follow up: IV Status: Completed infusion; IV Intake: 100ml ao Disposition: 07/30/18 21:56 Discharged to Home. Impression: Colitis. - Condition is Stable. - Discharge Instructions: Colitis. - Prescriptions for Tylenol- Codeine #3 300-30 mg Oral Tablet - take 2 tablets by ORAL route every 6 hours As needed; 20 tablet. Cipro 500 mg Oral Tablet - take 1 tablet by ORAL route every 12 hours for 10 days; 20 tablet. Metronidazole 500 mg Oral Tablet - take 1 tablet by ORAL route every 8 hours; 30 tablet. Zofran 4 mg Oral Tablet - take 1 tablet by ORAL route every 12 hours As needed; 20 tablet. - Work release form, Medication Reconciliation Form, Thank You Letter, Antibiotic Education, Prescription Opioid Use form. - Follow up: Lawrence Prajapati MD; When: 1 week; Reason: Recheck today's complaints. - Problem is new. - Symptoms have improved. Signatures: Dispatcher [employer] EDMS Marquez Castro RN RN la1 Ben Hatfield PA PA cp Ortiz, Alex, RN RN ao Antunez, Elena, RN RN ea Corrections: (The following items were deleted from the chart) 23:02 21:56 07/30/2018 21:56 Discharged to Home. Impression: Colitis. Condition is Stable. ao Forms are Medication Reconciliation Form, Thank You Letter, Antibiotic Education, Prescription Opioid Use. Follow up: Lawrence Prajapati; When: 1 week; Reason: Recheck today's complaints. Problem is new. Symptoms have improved. cp
[2018-07-30] MEDS ORDERED: METRONIDAZOLE 500mg IVPB 500 MG/100 ML BAG IV ONE (22:15)
[2018-07-30] MEDS ORDERED: CIPROFLOXACIN HCL 500 MG TAB ONE (22:15)
[2018-07-30] MEDS ORDERED: CODEINE 30MG/APAP 300MG TAB ONE ×2 (22:15→22:26)
== END 2018-07-30 23:02 | disposition home or self-care (01) ==
LOC: ER 18:30
DX: K52.9 Noninfective gastroenteritis and colitis, unspecified (principal); F17.210 Nicotine dependence, cigarettes, uncomplicated
CPT/HCPCS: 36415; 74177; 80048; 80076; 81003; 83690; 85025; 87045; 87046; 87493; 96365; 96375; 99284; J2405; Q9967

== ENCOUNTER 2018-11-05 07:34 | Emergency (ER) | payer BC, SELFPAY ==
[2018-11-05] MEDS ORDERED: MORPHINE 4 MG/ML SYR ONE (08:26)
[2018-11-05] MEDS ORDERED: ONDANSETRON 4 MG/2 ML VIAL ONE (08:26)
[2018-11-05 08:39] LABS: Absolute Lymphocytes (CBC) 2.2 K/uL (0.7-4.9); Absolute Monocytes 0.5 K/uL (0.1-1.3); Absolute Neutrophil 5.9 K/uL (1.8-8.0); Basophils % 0.5 % (0-1.3); Eosinophils % 3.1 % (0-4.4); Hematocrit 42.4 % (39.6-49.0); Lymphocytes % 24.9 % (15.3-44.8); MPV 7.8 fL (7.6-11.3); Monocytes % 5.7 % (3.3-12.3); RBC Red Blood Cell Count 4.55 M/uL (4.33-5.43)
[2018-11-05 08:56] LABS: ALT/SGPT 65 U/L (12-78); AST/SGOT 28 U/L (15-37); Albumin 3.7 g/dL (3.4-5.0); Alkaline Phosphatase 56 U/L (45-117); BUN Blood Urea Nitrogen 19 mg/dL (7-18); Bicarbonate 25 mmol/L (21-32); Bilirubin Direct < 0.1 mg/dL (0-0.2); Bilirubin Total 0.1 mg/dL (0.2-1.0); Glucose Level 99 mg/dL (74-106); Lipase 107 U/L (73-393); Potassium 4.3 mmol/L (3.5-5.1); Sodium Level 143 mmol/L (136-145)
[2018-11-05] MEDS ORDERED: NA CHLORIDE 0.9% 1,000 ML ONE (09:20)
--- NOTE | 2018-11-05 09:27 | EDPHYS ---
Physician Documentation [facility] Name: Patrick Randolph Jr Age: 28 yrs Sex: Male : 1990 Arrival Date: 11/05/2018 Time: 07:38 Bed 14 Private MD: GIULIANA PEREZ ED Physician Mayo Guillen HPI: 11/05 09:18 This 28 yrs old Male presents to ER via Ambulatory with complaints of gs Abdominal Pain, Nausea, Diarrhea. 09:18 The patient presents to the emergency department with nausea, diarrhea. Onset: The gs symptoms/episode began/occurred 5 day(s) ago, and became worse and became persistent. Possible causes: flare up of bowel problem. The symptoms are aggravated by nothing. The symptoms are alleviated by nothing. Associated signs and symptoms: Pertinent negatives: GI bleeding, vomiting. Severity of symptoms: At their worst the symptoms were moderate in the emergency department the symptoms are unchanged. The patient has experienced similar episodes in the past, a few times. The patient has not recently seen a physician. Historical: - Allergies: 07:52 No Known Allergies; ss - Home Meds: 07:52 citalopram 40 mg tab 1 tab once daily [Active]; unknown antibiotic [Active]; trazodone ss 150 mg Oral tab [Active]; - PMHx: 07:52 anxiety/ anger issues; insomnia; ss - PSHx: 07:52 None; ss - Immunization history:: Adult Immunizations up to date. - Social history:: Smoking status: Patient uses tobacco products, smokes one-half pack cigarettes per day. - Ebola Screening: : Patient denies exposure to infectious person Patient denies travel to an Ebola-affected area in the 21 days before illness onset. ROS: 09:18 All other systems are negative. gs Exam: 09:18 Head/Face: Normocephalic, atraumatic. Eyes: Pupils equal round and reactive to light, gs extra-ocular motions intact. Lids and lashes normal. Conjunctiva and sclera are non-icteric and not injected. Cornea within normal limits. Periorbital areas with no swelling, redness, or edema. ENT: Nares patent. No nasal discharge, no septal abnormalities noted. Tympanic membranes are normal and external auditory canals are clear. Oropharynx with no redness, swelling, or masses, exudates, or evidence of obstruction, uvula midline. Mucous membranes moist. Neck: Trachea midline, no thyromegaly or masses palpated, and no cervical lymphadenopathy. Supple, full range of motion without nuchal rigidity, or vertebral point tenderness. No Meningismus. Chest/axilla: Normal chest wall appearance and motion. Nontender with no deformity. No lesions are appreciated. Cardiovascular: Regular rate and rhythm with a normal S1 and S2. No gallops, murmurs, or rubs. Normal PMI, no JVD. No pulse deficits. Respiratory: Lungs have equal breath sounds bilaterally, clear to auscultation and percussion. No rales, rhonchi or wheezes noted. No increased work of breathing, no retractions or nasal flaring. Back: No spinal tenderness. No costovertebral tenderness. Full range of motion. Skin: Warm, dry with normal turgor. Normal color with no rashes, no lesions, and no evidence of cellulitis. MS/ Extremity: Pulses equal, no cyanosis. Neurovascular intact. Full, normal range of motion. Neuro: Awake and alert, GCS 15, oriented to person, place, time, and situation. Cranial nerves II-XII grossly intact. Motor strength 5/5 in all extremities. Sensory grossly intact. Cerebellar exam normal. Normal gait. 09:18 Constitutional: The patient appears alert, awake. 09:18 Abdomen/GI: Palpation: mild abdominal tenderness, in all quadrants. Vital Signs: 07:52 BP 137 / 99; Pulse 76; Resp 16; Temp 98.0(TE); Pulse Ox 99% on R/A; Weight 70.31 kg; ss Height 5 ft. 7 in. (170.18 cm); Pain 9/10; 08:50 BP 132 / 82; Pulse 70; Resp 16; Pulse Ox 97% on R/A; Pain 8/10; rb1 09:40 BP 132 / 85; Pulse 76; Resp 17; Pulse Ox 100% on R/A; rb1 07:52 Body Mass Index 24.28 (70.31 kg, 170.18 cm) ss MDM: 08:01 Patient medically screened. 09:18 Differential diagnosis: gastritis, pancreatitis, viral gastroenteritis, gs gastroenteritis. Data reviewed: vital signs, nurses notes. Response to treatment: the patient's symptoms have markedly improved after treatment, patient is well hydrated. and as a result, I will discharge patient. 11/05 08:03 Order name: Basic Metabolic Panel; Complete Time: 08:59 11/05 08:03 Order name: CBC with Diff; Complete Time: 08:59 11/05 08:03 Order name: Hepatic Function; Complete Time: 08:59 11/05 08:03 Order name: Lipase; Complete Time: 08:59 11/05 08:03 Order name: IV Saline Lock; Complete Time: 08:34 gs 11/05 08:03 Order name: Labs collected and sent; Complete Time: 08:34 gs Administered Medications: 08:30 Drug: morphine 4 mg Route: IVP; Site: right antecubital; rb1 08:50 Follow up: Response: No adverse reaction; Pain is unchanged, physician notified rb1 08:30 Drug: Zofran 4 mg Route: IVP; Site: right antecubital; rb1 08:50 Follow up: Response: No adverse reaction; Nausea is decreased rb1 09:15 Drug: NS 0.9% 1000 ml Route: IV; Rate: 1 bolus; Site: right antecubital; rb1 09:50 Follow up: IV Status: Completed infusion; IV Intake: 625ml rb1 09:24 Drug: [place] 10 mg-325 mg 1 tabs Route: PO; rb1 09:50 Follow up: Response: No adverse reaction; Pain is decreased rb1 Disposition: 11/05/18 09:26 Discharged to Home. Impression: Pain localized to upper abdomen, Other and unspecified noninfective gastroenteritis and colitis. - Condition is Stable. - Discharge Instructions: Colitis. - Prescriptions for Flagyl 500 mg Oral Tablet - take 1 tablet by ORAL route every 12 hours for 7 days; 14 tablet. Pepcid 20 mg Oral Tablet - take 1 tablet by ORAL route every 12 hours for 10 days; 20 tablet. Tylenol- Codeine #4 300-60 mg Oral Tablet - take 1 tablet by ORAL route every 6 hours As needed; 6 tablet. Zofran 4 mg Oral Tablet - take 1 tablet by ORAL route every 12 hours As needed; 6 tablet. - Work release form, Medication Reconciliation Form, Thank You Letter, Antibiotic Education, Prescription Opioid Use form. - Follow up: Lawrence Prajapati MD; When: 2 - 3 days; Reason: Re-evaluation by your physician. Signatures: Dispatcher [facility] Vicenta Barton RN RN Thai Garciaca, RN RN rb1 Mayo Guillen MD MD gs Corrections: (The following items were deleted from the chart) 10:03 09:26 11/05/2018 09:26 Discharged to Home. Impression: Pain localized to upper abdomen; rb1 Other and unspecified noninfective gastroenteritis and colitis. Condition is Stable. Forms are Medication Reconciliation Form, Thank You Letter, Antibiotic Education, Prescription Opioid Use. Follow up: Lawrence Prajapati; When: 2 - 3 days; Reason: Re-evaluation by your physician. gs
--- NOTE | 2018-11-05 09:27 | ER ---
Nurse's Notes [facility] Name: Patrick Randolph Jr Age: 28 yrs Sex: Male : 1990 Arrival Date: 11/05/2018 Time: 07:38 Bed 14 Private MD: GIULIANA PEREZ Diagnosis: Pain localized to upper abdomen;Other and unspecified noninfective gastroenteritis and colitis Presentation: 11/05 07:48 Presenting complaint: Patient states: LUQ pain and nausea that began 1 week ago, became ss much worse yesterday. Pt reports he was seen in ER a couple months ago for the same symptoms, was diagnosed with "inflamed intestines", and was unable to follow up with GI (Dr. Novak) as he did not have the time. Transition of care: patient was not received from another setting of care. Onset of symptoms was October 31, 2018. Risk Assessment: Do you want to hurt yourself or someone else? Patient reports no desire to harm self or others. Initial Sepsis Screen: Does the patient meet any 2 criteria? No. Patient's initial sepsis screen is negative. Does the patient have a suspected source of infection? No. Patient's initial sepsis screen is negative. Care prior to arrival: None. 07:48 Method Of Arrival: Ambulatory ss 07:48 Acuity: JUANITA 3 ss Historical: - Allergies: 07:52 No Known Allergies; ss - Home Meds: 07:52 citalopram 40 mg tab 1 tab once daily [Active]; unknown antibiotic [Active]; trazodone ss 150 mg Oral tab [Active]; - PMHx: 07:52 anxiety/ anger issues; insomnia; ss - PSHx: 07:52 None; ss - Immunization history:: Adult Immunizations up to date. - Social history:: Smoking status: Patient uses tobacco products, smokes one-half pack cigarettes per day. - Ebola Screening: : Patient denies exposure to infectious person Patient denies travel to an Ebola-affected area in the 21 days before illness onset. Screenin:45 Abuse screen: Denies threats or abuse. Nutritional screening: No deficits noted. rb1 Tuberculosis screening: No symptoms or risk factors identified. Fall Risk None identified. Assessment: 07:45 General: Appears in no apparent distress. comfortable, Behavior is calm, cooperative, rb1 Denies fever. Pain: Complains of pain in epigastric area and left upper quadrant Pain currently is 9 out of 10 on a pain scale. Neuro: Level of Consciousness is awake, alert, obeys commands, Oriented to person, place, time, situation. Cardiovascular: Capillary refill < 3 seconds is brisk in bilateral fingers. Respiratory: Airway is patent Respiratory effort is even, unlabored, Respiratory pattern is regular, symmetrical. GI: Bowel sounds present X 4 quads. Abd is soft Abdomen is tender to palpation in epigastric area and left upper quadrant Reports diarrhea, nausea. : No signs and/or symptoms were reported regarding the genitourinary system. Derm: Skin is pink, warm \\T\\ dry. Musculoskeletal: Range of motion: intact in all extremities. 08:45 Reassessment: Patient appears in no apparent distress at this time. No changes from rb1 previously documented assessment. 09:45 Reassessment: Patient appears in no apparent distress at this time. Patient and/or rb1 family updated on plan of care and expected duration. Pain level reassessed. Patient is alert, oriented x 3, equal unlabored respirations, skin warm/dry/pink. Vital Signs: 07:52 BP 137 / 99; Pulse 76; Resp 16; Temp 98.0(TE); Pulse Ox 99% on R/A; Weight 70.31 kg; ss Height 5 ft. 7 in. (170.18 cm); Pain 9/10; 08:50 BP 132 / 82; Pulse 70; Resp 16; Pulse Ox 97% on R/A; Pain 8/10; rb1 09:40 BP 132 / 85; Pulse 76; Resp 17; Pulse Ox 100% on R/A; rb1 07:52 Body Mass Index 24.28 (70.31 kg, 170.18 cm) ED Course: 07:38 Patient arrived in ED. sb2 07:39 GIULIANA PEREZ is Private Physician. sb2 07:44 Mayo Guillen MD is Attending Physician. gs 07:45 Patient has correct armband on for positive identification. Bed in low position. Call rb1 light in reach. Side rails up X 1. Pulse ox on. NIBP on. 07:50 Triage completed. ss 07:52 Arm band placed on right wrist. ss 08:00 Karen Garces, SUZIE is Primary Nurse. rb1 09:26 Lawrence Prajapati MD is Referral Physician. gs 09:53 No provider procedures requiring assistance completed. IV discontinued, intact, rb1 bleeding controlled, No redness/swelling at site. Pressure dressing applied. Administered Medications: 08:30 Drug: morphine 4 mg Route: IVP; Site: right antecubital; rb1 08:50 Follow up: Response: No adverse reaction; Pain is unchanged, physician notified rb1 08:30 Drug: Zofran 4 mg Route: IVP; Site: right antecubital; rb1 08:50 Follow up: Response: No adverse reaction; Nausea is decreased rb1 09:15 Drug: NS 0.9% 1000 ml Route: IV; Rate: 1 bolus; Site: right antecubital; rb1 09:50 Follow up: IV Status: Completed infusion; IV Intake: 625ml rb1 09:24 Drug: [place] 10 mg-325 mg 1 tabs Route: PO; rb1 09:50 Follow up: Response: No adverse reaction; Pain is decreased rb1 Intake: 09:50 IV: 625ml; Total: 625ml. rb1 Outcome: 09:26 Discharge ordered by MD. 09:53 Patient left the ED. rb1 09:53 Discharged to home ambulatory, with significant other. rb1 09:53 Condition: stable 09:53 Discharge instructions given to patient, Instructed on discharge instructions, follow up and referral plans. medication usage, Demonstrated understanding of instructions, follow-up care, medications, Prescriptions given X 4. Signatures: Vicenta Barton RN RN Karen Garces RN RN rb1 Mayo Guillen MD MD Paola Kauffman sb2 Corrections: (The following items were deleted from the chart) 10:38 10:03 Patient left the ED. rb1 rb1
[2018-11-05] MEDS ORDERED: HYDROCODONE/APAP 10/325 TAB ONE (09:32)
== END 2018-11-05 10:03 | disposition home or self-care (01) ==
LOC: ER 07:34
DX: K52.89 Other specified noninfective gastroenteritis and colitis (principal); F41.9 Anxiety disorder, unspecified; F17.210 Nicotine dependence, cigarettes, uncomplicated
CPT/HCPCS: 36415; 80048; 80076; 83690; 85025; 96361; 96374; 96375; 99283; J2405; J7030

== ENCOUNTER 2018-11-14 15:39 | Emergency (ER) | payer BC ==
[2018-11-14] MEDS ORDERED: ONDANSETRON 4 MG/2 ML VIAL ONE (16:34)
[2018-11-14] MEDS ORDERED: MORPHINE 4 MG/ML SYR ONE ×2 (16:34→20:40)
[2018-11-14] MEDS ORDERED: PANTOPRAZOLE 40 MG INJ ONE (16:34)
[2018-11-14 16:46] LABS: Absolute Lymphocytes (CBC) 3.2 K/uL (0.7-4.9); Absolute Monocytes 0.6 K/uL (0.1-1.3); Absolute Neutrophil 5.9 K/uL (1.8-8.0); Basophils % 0.6 % (0-1.3); Hematocrit 40.8 % (39.6-49.0); Lymphocytes % 32.2 % (15.3-44.8); MPV 8.1 fL (7.6-11.3); Monocytes % 5.5 % (3.3-12.3); RBC Red Blood Cell Count 4.47 M/uL (4.33-5.43)
[2018-11-14 16:54] LABS: ALT/SGPT 39 U/L (12-78); AST/SGOT 17 U/L (15-37); Albumin 3.9 g/dL (3.4-5.0); Alkaline Phosphatase 55 U/L (45-117); BUN Blood Urea Nitrogen 16 mg/dL (7-18); Bicarbonate 28 mmol/L (21-32); Bilirubin Direct < 0.1 mg/dL (0-0.2); Bilirubin Total 0.2 mg/dL (0.2-1.0); Glucose Level 88 mg/dL (74-106); Lipase 137 U/L (73-393); Magnesium 2.3 mg/dL (1.8-2.4); Phosphorus 3.1 mg/dL (2.5-4.9); Potassium 4.1 mmol/L (3.5-5.1); Protein, Total 7.3 g/dL (6.4-8.2); Sodium Level 140 mmol/L (136-145)
[2018-11-14 17:26] LABS: Urine Bacteria NONE SEEN /HPF (NONE SEEN); Urine Culture Reflex Order NOT NEEDED; Urine RBC <5 /HPF (NONE SEEN)
[2018-11-14] MEDS ORDERED: KETOROLAC 30 MG/ML INJ ONE (17:44)
--- NOTE | 2018-11-14 19:16 | RAD REPORT ---
EXAM DESCRIPTION: CT - Abdomen Pelvis W Contrast - 11/14/2018 6:41 pm CLINICAL HISTORY: Abdominal pain. COMPARISON: July 2018 TECHNIQUE: Computed axial tomography of the abdomen and pelvis was obtained. 100 cc Isovue-300 is ad ministered intravenously. Oral contrast was given. All CT scans are performed using dose optimization technique as appropriate and may include automated exposure control or mA/KV adjustment according to patient size. FINDINGS: The liver, spleen, pancreas, adrenals and kidneys appear unremarkable. The appendix is normal caliber. There is no evidence of diverticulitis The wall of the descending and sigmoid colon appears mildly thickened IMPRESSION: Apparent mild thickening of the wall of the descending and sigmoid colon may indicate a mild colitis or be secondary to incomplete distention
[2018-11-14] MEDS ORDERED: METRONIDAZOLE 500mg IVPB 500 MG/100 ML BAG IV ONE (19:50)
[2018-11-14] MEDS ORDERED: NA CHLORIDE 0.9% 1,000 ML ONE ×2 (19:50→21:10)
[2018-11-14 20:03] LABS: Urine Blood NEGATIVE (NEG); Urine Glucose NEGATIVE (NEG); Urine Protein NEGATIVE (NEG)
[2018-11-14] MEDS ORDERED: CIPROFLOXACIN 400mg IV 400 MG/200 ML BAG IV ONE (20:13)
--- NOTE | 2018-11-14 21:17 | EDPHYS ---
Physician Documentation [facility] Name: Patrick Randolph Jr Age: 28 yrs Sex: Male : 1990 Arrival Date: 11/14/2018 Time: 15:42 Bed 20 Private MD: GIULIANA PEREZ ED Physician Mayo Guillen HPI: 11/14 16:10 This 28 yrs old Male presents to ER via Ambulatory with complaints of cp Abdominal Pain, Headache. 16:10 The patient presents with abdominal pain in the upper abdomen. cp 16:10 Onset: The symptoms/episode began/occurred 1 month(s) ago. cp 16:10 The symptoms do not radiate. cp 16:10 Associated signs and symptoms: Pertinent positives: nausea, decreased appetite, cp Pertinent negatives: blood in stools, fever, testicular pain, vomiting. The patient has been recently seen at the [facility] Emergency Department, a couple of weeks ago, for similar complaints labs were performed. Patient reports he followed up with GI, DR Prajapati, who wants to perform endoscopy and colonoscopy but patient is unable to have procedure done because he has not met insurance deductible. Historical: - Allergies: 16:01 No Known Allergies; tw2 - Home Meds: 16:01 trazodone 150 mg Oral tab [Active]; Fluoxetine Oral [Active]; citalopram 40 mg tab 1 tw2 tab once daily [Active]; - PMHx: 16:01 anger issues; anxiety/ anger issues; insomnia; tw2 - PSHx: 16:01 None; tw2 - Immunization history:: Adult Immunizations. - Social history:: Smoking status: . - Ebola Screening: : Patient denies travel to an Ebola-affected area in the 21 days before illness onset. ROS: 16:15 Constitutional: Positive for weight loss, Negative for body aches, chills, fever, poor cp PO intake. 16:15 Eyes: Negative for injury, pain, redness, and discharge. cp 16:15 ENT: Negative for drainage from ear(s), ear pain, sore throat, difficulty swallowing, difficulty handling secretions. 16:15 Respiratory: Negative for cough, shortness of breath, wheezing. 16:15 Abdomen/GI: Positive for abdominal pain, nausea, diarrhea, of the right upper quadrant and left upper quadrant, Negative for vomiting, constipation, black/tarry stool, rectal bleeding. 16:15 Skin: Negative for cellulitis, rash. 16:15 Neuro: Positive for headache, Negative for altered mental status, weakness. 16:15 All other systems are negative. Exam: 16:30 Constitutional: The patient appears in no acute distress, alert, awake, non-toxic, well cp developed, well nourished. 16:30 Head/Face: Normocephalic, atraumatic. cp 16:30 Eyes: Periorbital structures: appear normal, Conjunctiva: normal, no exudate, no injection, Sclera: no appreciated abnormality, Lids and lashes: appear normal, bilaterally. 16:30 ENT: External ear(s): are unremarkable, Nose: is normal, Mouth: Lips: moist, Oral mucosa: pink and intact, moist, Posterior pharynx: is normal, airway is patent, no erythema, no exudate. 16:30 Chest/axilla: Inspection: normal, Palpation: is normal, no crepitus, no tenderness. 16:30 Cardiovascular: Rate: normal, Rhythm: regular. 16:30 Respiratory: the patient does not display signs of respiratory distress, Respirations: normal, no use of accessory muscles, no retractions, no splinting, no tachypnea, labored breathing, is not present, Breath sounds: are clear throughout, no decreased breath sounds, no stridor, no wheezing. 16:30 Abdomen/GI: Inspection: abdomen appears normal, Bowel sounds: active, all quadrants, Palpation: soft, in all quadrants, moderate abdominal tenderness, in all quadrants, rebound tenderness, is not appreciated, involuntary guarding, is not appreciated. 16:30 Back: pain, is absent, ROM is normal. 16:30 Skin: cellulitis, is not appreciated, no rash present. Vital Signs: 16:03 BP 139 / 68; Pulse 76; Resp 18; Temp 98.0; Pulse Ox 99% on R/A; Weight 70.76 kg; Pain ph 9/10; 16:09 BP 131 / 85 Supine; Pulse 76; tw2 16:09 BP 124 / 86 Sitting; Pulse 75; tw2 16:09 BP 123 / 93 Standing; tw2 16:38 BP 126 / 70; Pulse 76; Resp 17; Pulse Ox 95% on R/A; tw2 17:30 BP 132 / 81; Pulse 76; Resp 16; Pulse Ox 99% on R/A; rb1 18:30 rb1 19:19 BP 119 / 83; Pulse 63; Resp 17 S; Pulse Ox 99% on R/A; jd3 20:21 BP 129 / 73; Pulse 72; Resp 20; Pulse Ox 99% on R/A; Pain 8/10; eb1 21:22 BP 127 / 84; Pulse 77; Resp 20; Pulse Ox 98% ; Pain 4/10; eb1 21:24 Pain 4/10; eb1 16:09 pt reports dizziness in all 3 positions, does not change tw2 18:[address] rb1 MDM: 15:54 Patient medically screened. cp 17:00 Differential diagnosis: gastritis, GI Bleed, non-specific abd pain, pancreatitis, cp Pyelonephritis, Testicular Torsion, Ureterolithiasis, urinary tract infection, colitis. 19:30 Data reviewed: vital signs, nurses notes, old medical records, lab test result(s), radiologic studies, CT scan. 19:35 Physician consultation: Lawrence Prajapati MD was called at 19:35, was contacted at 19:35, regarding patient's condition, and will see patient in office, tomorrow, would like medications started, oral Cipro and metronidazole. 11/14 16:09 Order name: Basic Metabolic Panel; Complete Time: 17:00 11/14 17:00 Interpretation: Normal except: CL 109. 11/14 16:09 Order name: CBC with Diff; Complete Time: 17:00 11/14 17:00 Interpretation: Normal except: PLT 287. 11/14 16:09 Order name: Creatinine for Radiology; Complete Time: 17:00 11/14 16:09 Order name: Hepatic Function; Complete Time: 17:00 11/14 17:00 Interpretation: Reviewed. 11/14 16:09 Order name: Lipase; Complete Time: 17:00 11/14 17:01 Interpretation: Reviewed. 11/14 16:09 Order name: Urine Microscopic Only; Complete Time: 17:32 cp 11/14 17:32 Interpretation: Reviewed. 11/14 16:09 Order name: Magnesium; Complete Time: 17:00 11/14 16:09 Order name: Phosphorus; Complete Time: 17:00 11/14 16:20 Order name: CT Abd/Pelvis - W/Contrast: give oral contrast; Complete Time: 19:19 cp 11/14 19:20 Interpretation: Report reviewed. cp 11/14 16:31 Order name: Urine Dipstick--Ancillary (enter results); Complete Time: 20:04 bd 11/14 20:04 Interpretation: Reviewed. cp 11/14 16:04 Order name: Orthostatics; Complete Time: 16:09 cp 11/14 16:09 Order name: IV Saline Lock; Complete Time: 16:33 cp 11/14 16:09 Order name: Labs collected and sent; Complete Time: 16:33 cp 11/14 16:09 Order name: Urine Dipstick-Ancillary (obtain specimen); Complete Time: 16:33 cp Administered Medications: 16:28 Drug: ProTONIX 40 mg Route: IVP; Site: right antecubital; tw2 16:45 Follow up: Response: No adverse reaction rb1 16:30 Drug: Zofran 4 mg Route: IVP; Site: right antecubital; tw2 16:45 Follow up: Response: No adverse reaction; Nausea is decreased rb1 16:32 Drug: morphine 4 mg Route: IVP; Site: right antecubital; tw2 16:45 Follow up: Response: No adverse reaction; Pain is decreased rb1 17:38 Drug: TORadol 30 mg Route: IVP; Site: right antecubital; rb1 18:00 Follow up: Response: No adverse reaction; Pain is decreased; pain 5/10 rb1 19:51 Drug: metroNIDAZOLE 500 mg Volume: 100 ml; Route: IVPB; Infused Over: 30 mins; Site: eb1 right antecubital; 20:00 Drug: NS 0.9% 1000 ml Route: IV; Rate: 1 bolus; Site: right antecubital; eb1 20:28 Drug: Cipro 400 mg Volume: 200 ml; Route: IVPB; Infused Over: 60 mins; Site: left eb1 antecubital; 21:24 Follow up: Response: No adverse reaction eb1 20:32 Drug: morphine 4 mg Route: IVP; Site: left antecubital; eb1 21:24 Follow up: Pain 4/10 Adult eb1 21:09 Drug: NS 0.9% 1000 ml Route: IV; Rate: 1 bolus; Site: right antecubital; eb1 Disposition: 11/14/18 21:16 Discharged to Home. Impression: Colitis. - Condition is Stable. - Discharge Instructions: Colitis. - Prescriptions for Cipro 500 mg Oral Tablet - take 1 tablet by ORAL route every 12 hours for 14 days; 27 tablet. Phenergan 25 mg Rectal Suppository - insert 1 suppository by RECTAL route every 6 hours As needed; 12 suppository. promethazine 25 mg Oral Tablet - take 1 tablet by ORAL route every 6 hours As needed; 20 tablet. Tylenol- Codeine #3 300-30 mg Oral Tablet - take 2 tablets by ORAL route every 6 hours As needed; 15 tablet. - Medication Reconciliation Form, Thank You Letter, Antibiotic Education, Prescription Opioid Use, Work release form form. - Follow up: Lawrence Prajapati MD; When: Tomorrow; Reason: Recheck today's complaints, in clinic. - Problem is an ongoing problem. - Symptoms have improved. Addendum: 11/17/2018 09:25 Co-signature as Attending Physician, Mayo Guillen MD. g s Signatures: Dispatcher [employer] EDMS Ben Hatfield PA PA cp Karen Garces, RN RN rb1 Catie Foster RN RN tw2 Mayo Guillen MD MD Gabriela Rollins RN RN eb1 Corrections: (The following items were deleted from the chart) 11/14 21:50 21:16 11/14/2018 21:16 Discharged to Home. Impression: Colitis. Condition is Stable. eb1 Forms are Work release form, Medication Reconciliation Form, Thank You Letter, Antibiotic Education, Prescription Opioid Use. Follow up: Lawrence Prajapati; When: Tomorrow; Reason: Recheck today's complaints, in clinic. Problem is an ongoing problem. Symptoms have improved. cp
--- NOTE | 2018-11-14 21:17 | ER ---
Nurse's Notes [facility] Name: Patrick Randolph Jr Age: 28 yrs Sex: Male : 1990 Arrival Date: 11/14/2018 Time: 15:42 Bed 20 Private MD: GIULIANA PEREZ Diagnosis: Colitis Presentation: 11/14 16:01 Presenting complaint: Patient states: Upper abdominal pain for approx 1 month, worse ph after eating, was seen ED 2 weeks ago and sent home w/ prescriptions, states that they are not helping, reports nausea, denies V/D, also c/o R sided headache x 2 days and dizziness. Transition of care: patient was not received from another setting of care. Onset of symptoms was November 14, 2018. Risk Assessment: Do you want to hurt yourself or someone else? Patient reports no desire to harm self or others. Initial Sepsis Screen: Does the patient meet any 2 criteria? No. Patient's initial sepsis screen is negative. Does the patient have a suspected source of infection? No. Patient's initial sepsis screen is negative. Care prior to arrival: None. 16:01 Method Of Arrival: Ambulatory ph 16:01 Acuity: JUANITA 3 ph Historical: - Allergies: 16:01 No Known Allergies; tw2 - Home Meds: 16:01 trazodone 150 mg Oral tab [Active]; Fluoxetine Oral [Active]; citalopram 40 mg tab 1 tw2 tab once daily [Active]; - PMHx: 16:01 anger issues; anxiety/ anger issues; insomnia; tw2 - PSHx: 16:01 None; tw2 - Immunization history:: Adult Immunizations. - Social history:: Smoking status: . - Ebola Screening: : Patient denies travel to an Ebola-affected area in the 21 days before illness onset. Screenin:59 Abuse screen: Denies threats or abuse. Nutritional screening: No deficits noted. tw2 Tuberculosis screening: No symptoms or risk factors identified. Fall Risk None identified. Assessment: 16:01 General: Appears in no apparent distress. Behavior is calm, cooperative, appropriate tw2 for age. Pain: Complains of pain in abdomen. Neuro: Level of Consciousness is awake, alert, obeys commands, Oriented to person, place, time, situation. Neuro: Reports headache. Cardiovascular: Heart tones S1 S2 Patient's skin is warm and dry. Respiratory: Airway is patent Respiratory effort is even, unlabored, Respiratory pattern is regular, symmetrical, Breath sounds are clear bilaterally. GI: Abdomen is round Bowel sounds present X 4 quads. Abd is soft X 4 quads Reports lower abdominal pain, upper abdominal pain, diarrhea, indigestion, nausea. : No signs and/or symptoms were reported regarding the genitourinary system. EENT: No signs and/or symptoms were reported regarding the EENT system. Derm: No signs and/or symptoms reported regarding the dermatologic system. Musculoskeletal: Circulation, motion, and sensation intact. Range of motion: intact in all extremities. 16:38 Reassessment: Patient appears in no apparent distress at this time. No changes from tw2 previously documented assessment. Patient and/or family updated on plan of care and expected duration. Pain level reassessed. Patient is alert, oriented x 3, equal unlabored respirations, skin warm/dry/pink. 16:45 Reassessment: pt completed drinking oral contrast at this time, message left for CT at tw2 this time. 17:35 Reassessment: Patient appears in no apparent distress at this time. Patient and/or rb1 family updated on plan of care and expected duration. Pain level reassessed. Patient is alert, oriented x 3, equal unlabored respirations, skin warm/dry/pink. at bedside. 18:00 Reassessment: Patient appears in no apparent distress at this time. Patient and/or rb1 family updated on plan of care and expected duration. Pain level reassessed. Patient is alert, oriented x 3, equal unlabored respirations, skin warm/dry/pink. Pain 5/10. 18:40 Reassessment: Pt. is currently in CT. rb1 19:19 Reassessment: Patient appears in no apparent distress at this time. No changes from jd3 previously documented assessment. Patient and/or family updated on plan of care and expected duration. Pain level reassessed. Patient is alert, oriented x 3, equal unlabored respirations, skin warm/dry/pink. 20:12 Reassessment: No changes from previously documented assessment. Patient is alert, eb1 oriented x 3, equal unlabored respirations, skin warm/dry/pink. Reassessment: Patient states symptoms have not improved. General:. 21:23 Reassessment: No changes from previously documented assessment. Patient and/or family eb1 updated on plan of care and expected duration. Pain level reassessed. Patient is alert, oriented x 3, equal unlabored respirations, skin warm/dry/pink. Patient states symptoms have improved. Vital Signs: 16:03 BP 139 / 68; Pulse 76; Resp 18; Temp 98.0; Pulse Ox 99% on R/A; Weight 70.76 kg; Pain ph 9/10; 16:09 BP 131 / 85 Supine; Pulse 76; tw2 16:09 BP 124 / 86 Sitting; Pulse 75; tw2 16:09 BP 123 / 93 Standing; tw2 16:38 BP 126 / 70; Pulse 76; Resp 17; Pulse Ox 95% on R/A; tw2 17:30 BP 132 / 81; Pulse 76; Resp 16; Pulse Ox 99% on R/A; rb1 18:30 rb1 19:19 BP 119 / 83; Pulse 63; Resp 17 S; Pulse Ox 99% on R/A; jd3 20:21 BP 129 / 73; Pulse 72; Resp 20; Pulse Ox 99% on R/A; Pain 8/10; eb1 21:22 BP 127 / 84; Pulse 77; Resp 20; Pulse Ox 98% ; Pain 4/10; eb1 21:24 Pain 4/10; eb1 16:09 pt reports dizziness in all 3 positions, does not change tw2 18:[address] rb1 ED Course: 15:42 Patient arrived in ED. mr 15:42 GIULIANA PEREZ is Private Physician. mr 15:50 Catie Foster RN is Primary Nurse. tw2 15:53 [facility] Hatfield [facility]. cp 15:53 Mayo Guillen MD is Attending Physician. cp 16:00 Arm band placed on. tw2 16:01 Bed in low position. Call light in reach. Adult w/ patient. Pulse ox on. NIBP on. tw2 16:03 Triage completed. ph 16:15 Inserted saline lock: 20 gauge in right antecubital area, using aseptic technique. tw2 Blood collected. 17:01 Report given to SUZIE Jones. tw2 17:02 Primary Nurse role handed off by Catie Foster RN tw2 17:37 Karen Garces RN is Primary Nurse. rb1 18:41 CT completed. Patient tolerated procedure well. Patient moved back from CT. nj 18:41 CT Abd/Pelvis - W/Contrast: give oral contrast In Process Unspecified. EDMS 19:00 Report given to SUZIE Mitchell. rb1 20:09 No apparent distress. eb1 21:15 Lawrence Prajapati MD is Referral Physician. cp 21:48 No provider procedures requiring assistance completed. IV discontinued. eb1 Administered Medications: 16:28 Drug: ProTONIX 40 mg Route: IVP; Site: right antecubital; tw2 16:45 Follow up: Response: No adverse reaction rb1 16:30 Drug: Zofran 4 mg Route: IVP; Site: right antecubital; tw2 16:45 Follow up: Response: No adverse reaction; Nausea is decreased rb1 16:32 Drug: morphine 4 mg Route: IVP; Site: right antecubital; tw2 16:45 Follow up: Response: No adverse reaction; Pain is decreased rb1 17:38 Drug: TORadol 30 mg Route: IVP; Site: right antecubital; rb1 18:00 Follow up: Response: No adverse reaction; Pain is decreased; pain 5/10 rb1 19:51 Drug: metroNIDAZOLE 500 mg Volume: 100 ml; Route: IVPB; Infused Over: 30 mins; Site: eb1 right antecubital; 20:00 Drug: NS 0.9% 1000 ml Route: IV; Rate: 1 bolus; Site: right antecubital; eb1 20:28 Drug: Cipro 400 mg Volume: 200 ml; Route: IVPB; Infused Over: 60 mins; Site: left eb1 antecubital; 21:24 Follow up: Response: No adverse reaction eb1 20:32 Drug: morphine 4 mg Route: IVP; Site: left antecubital; eb1 21:24 Follow up: Pain 4/10 Adult eb1 21:09 Drug: NS 0.9% 1000 ml Route: IV; Rate: 1 bolus; Site: right antecubital; eb1 Intake: Outcome: 21:16 Discharge ordered by . cp 21:49 Discharged to home with family. eb1 21:49 Condition: improved 21:49 Discharge instructions given to patient, Instructed on discharge instructions, follow up and referral plans. medication usage, Demonstrated understanding of instructions, follow-up care, medications, Prescriptions given X 4. 21:50 Patient left the ED. eb1 Signatures: Dispatcher [employer] Feli Anderson SheaAlena, RN RN ph Alysia, QUITA Contreras cp, Rebecca, RN RN rb1 Catie Foster RN RN tw2 Scooter Aponte Jonathon, RN RN jd3 Gabriela Rollins, RN RN eb1 Corrections: (The following items were deleted from the chart) 16:38 16:01 GI: Abdomen is round Bowel sounds present X 4 quads. Abd is soft X 4 quads tw2 Reports lower abdominal pain, upper abdominal pain, nausea, tw2 16:55 16:55 Inserted saline lock: 20 gauge in right antecubital area, using aseptic tw2 technique. Blood collected. tw2
== END 2018-11-14 21:50 | disposition home or self-care (01) ==
LOC: ER 15:39
DX: K52.9 Noninfective gastroenteritis and colitis, unspecified (principal); F41.9 Anxiety disorder, unspecified; G47.00 Insomnia, unspecified; Z79.899 Other long term (current) drug therapy
CPT/HCPCS: 36415; 74177; 80048; 80076; 81003; 81015; 83690; 83735; 84100; 85025; 99284; C9113; J0744; J2405; J7030; Q9967

== ENCOUNTER 2018-12-31 12:54 | Emergency (ER) | payer BC ==
[2018-12-31] MEDS ORDERED: DOXYCYCLINE 100 MG CAP PO ONE (13:48)
[2018-12-31] MEDS ORDERED: HYDROCODONE/APAP 7.5/325 MG TAB ONE (13:48)
[2018-12-31] MEDS ORDERED: CLINDAMYCIN 600MG/D5W 600 MG/50 ML BAG IV ONE (13:49)
[2018-12-31 14:26] LABS: Absolute Lymphocytes (CBC) 2.3 K/uL (0.7-4.9); Absolute Monocytes 0.7 K/uL (0.1-1.3); Absolute Neutrophil 4.8 K/uL (1.8-8.0); Basophils % 0.5 % (0-1.3); Eosinophils % 2.9 % (0-4.4); Hematocrit 41.9 % (39.6-49.0); Lymphocytes % 28.7 % (15.3-44.8); MPV 8.1 fL (7.6-11.3); Monocytes % 8.1 % (3.3-12.3); RBC Red Blood Cell Count 4.52 M/uL (4.33-5.43)
[2018-12-31 14:36] LABS: BUN Blood Urea Nitrogen 19 mg/dL (7-18); Bicarbonate 30 mmol/L (21-32); Glucose Level 88 mg/dL (74-106); Potassium 4.4 mmol/L (3.5-5.1); Sodium Level 145 mmol/L (136-145)
--- NOTE | 2018-12-31 15:11 | ER ---
Nurse's Notes [facility] Name: Patrick Randolph Jr Age: 28 yrs Sex: Male : 1990 Arrival Date: 12/31/2018 Time: 12:57 Bed 20 Private MD: GIULIANA PEREZ Diagnosis: Cellulitis of right upper limb Presentation: 12/31 13:23 Presenting complaint: Patient states: R hand swelling since yesterday, states, " It ph started as a little pimple thing on my finger." Reports being seen in [place] last night and placed on Keflex but states that swelling has worsened, redness and swelling noted to R hand. Transition of care: patient was not received from another setting of care. Onset of symptoms was December 31, 2018. Risk Assessment: Do you want to hurt yourself or someone else? Patient reports no desire to harm self or others. Initial Sepsis Screen: Does the patient meet any 2 criteria? No. Patient's initial sepsis screen is negative. Does the patient have a suspected source of infection? Yes: Skin breakdown/wound. Care prior to arrival: None. 13:23 Method Of Arrival: Ambulatory ph 13:23 Acuity: JUANITA 4 ph Triage Assessment: 15:37 General: Appears in no apparent distress. Behavior is anxious. tw2 Historical: - Allergies: 13:26 No Known Allergies; ph - Home Meds: 13:26 citalopram 40 mg tab 1 tab once daily [Active]; Fluoxetine Oral [Active]; trazodone 150 ph mg Oral tab [Active]; - PMHx: 13:26 anger issues; insomnia; ph - Immunization history:: Adult Immunizations. - Social history:: Smoking status: . - Ebola Screening: : Patient denies travel to an Ebola-affected area in the 21 days before illness onset. Screenin:36 Abuse screen: Denies threats or abuse. Nutritional screening: No deficits noted. tw2 Tuberculosis screening: No symptoms or risk factors identified. Fall Risk None identified. Assessment: 13:45 General: Appears in no apparent distress. uncomfortable, well groomed, well developed, sv Behavior is calm, cooperative, appropriate for age. Pain: Complains of pain in right hand Pain currently is 8 out of 10 on a pain scale. Neuro: Level of Consciousness is awake, alert, obeys commands, Oriented to person, place, time, situation, Moves all extremities. Full function Gait is steady, Speech is normal. Respiratory: Respiratory effort is even, unlabored, Respiratory pattern is regular, symmetrical. Derm: Skin is pink, warm \\T\\ dry. Abscess located on dorsal aspect of proximal phalanx of right index finger is dime sized, has no drainage, is hot to touch, is red, is raised, swelling and redness noted around the area. 14:10 Reassessment: Patient appears in no apparent distress at this time. No changes from sv previously documented assessment. Patient and/or family updated on plan of care and expected duration. Pain level reassessed. Patient is alert, oriented x 3, equal unlabored respirations, skin warm/dry/pink. 15:36 Reassessment: Patient appears in no apparent distress at this time. No changes from tw2 previously documented assessment. Patient and/or family updated on plan of care and expected duration. Pain level reassessed. Patient is alert, oriented x 3, equal unlabored respirations, skin warm/dry/pink. Pain: Complains of pain in right hand. Vital Signs: 13:25 BP 137 / 95; Pulse 86; Resp 18; Temp 97.5; Pulse Ox 100% on R/A; Weight 73 kg; Height 5 ph ft. 7 in. (170.18 cm); 14:25 BP 131 / 81; Pulse 85; Resp 18; Pulse Ox 98% ; sv 15:31 BP 115 / 65; Pulse 88; Resp 17; Pulse Ox 100% on R/A; tw2 13:25 Body Mass Index 25.21 (73.00 kg, 170.18 cm) ph ED Course: 12:57 Patient arrived in ED. mr 12:57 GIULIANA PEREZ is Private Physician. mr 13:16 Bed in low position. tw2 13:17 Sherrie Basilio FNP-C is [facility]. kb 13:17 Ben Ambrose MD is Attending Physician. kb 13:25 Triage completed. ph 13:26 Arm band placed on Patient placed in an exam room. ph 13:45 Wound culture swab sent to lab. sv 13:50 Initial lab(s) drawn, by me, sent to lab. First set of blood cultures drawn by me. sv Inserted saline lock: 20 gauge in left antecubital area, using aseptic technique. Blood collected. Flushed left antecubital with 5 ml normal saline. 14:05 Second set of blood cultures drawn by me. sv 14:20 Maria D Benavides, RN is Primary Nurse. sv 15:10 GIULIANA PEREZ is Referral Physician. kb 15:37 No provider procedures requiring assistance completed. IV discontinued, intact, tw2 bleeding controlled, No redness/swelling at site. Pressure dressing applied. Administered Medications: 14:10 Drug: Clindamycin 600 mg Route: IVPB; Infused Over: 30 mins; Site: left antecubital; sv 14:40 Follow up: Response: No adverse reaction; IV Status: Completed infusion; IV Intake: 50mlsv 14:10 Drug: Doxycycline 100 mg Route: PO; sv 15:31 Follow up: Response: No adverse reaction tw2 14:10 Drug: Lewis (7.5 mg-325 mg) 1 tabs Route: PO; sv 15:32 Follow up: Response: No adverse reaction tw2 Intake: 14:40 IV: 50ml; Total: 50ml. sv Outcome: 15:11 Discharge ordered by MD. kb 15:37 Discharged to home ambulatory, with significant other. tw2 15:37 Condition: stable 15:37 Discharge instructions given to patient, significant other, Instructed on discharge instructions, follow up and referral plans. medication usage, Demonstrated understanding of instructions, follow-up care, medications, wound care, Prescriptions given X 2. 15:38 Patient left the ED. tw2 Signatures: Sherire Basilio, SHANK STITCHER-C SHANK STITCHER-Maria D Barrno, SUZIE LARSEN Collins, Alena Adrian RN RN Catie Foster RN RN tw2
--- NOTE | 2018-12-31 15:11 | EDPHYS ---
Physician Documentation [facility] Name: Patrick Randolph Jr Age: 28 yrs Sex: Male : 1990 Arrival Date: 12/31/2018 Time: 12:57 Bed 20 Private MD: GIULIANA PEREZ ED Physician Ben Ambrose HPI: 12/31 15:05 This 28 yrs old Male presents to ER via Ambulatory with complaints of Hand kb Swelling. 15:05 The patient presents with cellulitis of the right hand. Description: erythematous, kb swollen, warm. Onset: The symptoms/episode began/occurred 2 day(s) ago. Possible cause(s): unknown. Associated signs and symptoms: Pertinent positives: erythema, swelling, Pertinent negatives: discharge, drainage, foreign body sensation, fever, headache, nausea, shortness of breath, vomiting. Modifying factors: the symptoms are alleviated by nothing, the symptoms are aggravated by nothing. Severity of symptoms: At their worst the symptoms were moderate, in the emergency department the symptoms are unchanged. The patient has not experienced similar symptoms in the past. The patient has not recently seen a physician. Pt reports swelling and redness to right hand that started 2 days ago. States it started off like a pimple so he popped it and then it got worse. Went fishing on the day he popped it as well. Went to [facility] yesterday and given prescription for keflex, but symptoms are not improving. Pt took one dose this morning. Historical: - Allergies: 13:26 No Known Allergies; ph - Home Meds: 13:26 citalopram 40 mg tab 1 tab once daily [Active]; Fluoxetine Oral [Active]; trazodone 150 ph mg Oral tab [Active]; - PMHx: 13:26 anger issues; insomnia; ph - Immunization history:: Adult Immunizations. - Social history:: Smoking status: . - Ebola Screening: : Patient denies travel to an Ebola-affected area in the 21 days before illness onset. ROS: 14:56 Constitutional: Negative for fever, chills, and weight loss, Cardiovascular: Negative kb for chest pain, palpitations, and edema, Respiratory: Negative for shortness of breath, cough, wheezing, and pleuritic chest pain, Abdomen/GI: Negative for abdominal pain, nausea, vomiting, diarrhea, and constipation, MS/Extremity: Negative for injury and deformity, Neuro: Negative for headache, weakness, numbness, tingling, and seizure. 14:56 Skin: Positive for cellulitis, erythema, swelling. Exam: 15:04 Constitutional: This is a well developed, well nourished patient who is awake, alert, kb and in no acute distress. Head/Face: Normocephalic, atraumatic. Chest/axilla: Normal chest wall appearance and motion. Nontender with no deformity. No lesions are appreciated. Cardiovascular: Regular rate and rhythm with a normal S1 and S2. No gallops, murmurs, or rubs. Normal PMI, no JVD. No pulse deficits. Respiratory: Lungs have equal breath sounds bilaterally, clear to auscultation and percussion. No rales, rhonchi or wheezes noted. No increased work of breathing, no retractions or nasal flaring. Abdomen/GI: Soft, non-tender, with normal bowel sounds. No distension or tympany. No guarding or rebound. No evidence of tenderness throughout. MS/ Extremity: Pulses equal, no cyanosis. Neurovascular intact. Full, normal range of motion. Neuro: Awake and alert, GCS 15, oriented to person, place, time, and situation. Cranial nerves II-XII grossly intact. Motor strength 5/5 in all extremities. Sensory grossly intact. Cerebellar exam normal. Normal gait. 15:04 Skin: cellulitis, that is mild, that is moderate, on the right hand. Vital Signs: 13:25 BP 137 / 95; Pulse 86; Resp 18; Temp 97.5; Pulse Ox 100% on R/A; Weight 73 kg; Height 5 ph ft. 7 in. (170.18 cm); 14:25 BP 131 / 81; Pulse 85; Resp 18; Pulse Ox 98% ; sv 15:31 BP 115 / 65; Pulse 88; Resp 17; Pulse Ox 100% on R/A; tw2 13:25 Body Mass Index 25.21 (73.00 kg, 170.18 cm) ph MDM: 13:18 Patient medically screened. [facility] 14:56 Data reviewed: vital signs, nurses notes. Data interpreted: Pulse oximetry: on room air kb is 98 %. Interpretation: normal. Counseling: I had a detailed discussion with the patient and/or guardian regarding: the historical points, exam findings, and any diagnostic results supporting the discharge/admit diagnosis, lab results, the need for outpatient follow up, a family practitioner, to return to the emergency department if symptoms worsen or persist or if there are any questions or concerns that arise at home. 14:59 ED course: Pt given return precautions. Verbal understanding received. kb 12/31 13:32 Order name: CBC with Diff; Complete Time: 14:55 kb 12/31 13:32 Order name: Basic Metabolic Panel; Complete Time: 14:38 kb 12/31 13:32 Order name: Blood Culture Adult (2) kb 12/31 13:32 Order name: IV Start; Complete Time: 14:55 kb Administered Medications: 14:10 Drug: Clindamycin 600 mg Route: IVPB; Infused Over: 30 mins; Site: left antecubital; sv 14:40 Follow up: Response: No adverse reaction; IV Status: Completed infusion; IV Intake: 50mlsv 14:10 Drug: Doxycycline 100 mg Route: PO; sv 15:31 Follow up: Response: No adverse reaction tw2 14:10 Drug: [place] (7.5 mg-325 mg) 1 tabs Route: PO; sv 15:32 Follow up: Response: No adverse reaction tw2 Disposition: 01/01 09:45 Co-signature as Attending Physician, Ben Ambrose MD I agree with the assessment and nathaniel plan of care. Disposition: 12/31/18 15:11 Discharged to Home. Impression: Cellulitis of right upper limb. - Condition is Stable. - Discharge Instructions: Cellulitis, Adult, [id number]. - Prescriptions for Doxycycline Hyclate 100 mg Oral Tablet - take 1 tablet by ORAL route every 12 hours; 20 tablet. Bactrim DS 800- 160 mg Oral Tablet - take 1 tablet by ORAL route every 12 hours for 10 days; 20 tablet. - Work release form, Medication Reconciliation Form, Thank You Letter, Antibiotic Education, Prescription Opioid Use form. - Follow up: Emergency Department; When: As needed; Reason: Worsening of condition. Follow up: GIULIANA PEREZ; When: 2 - 3 days; Reason: Recheck today's complaints, Continuance of care, Re-evaluation by your physician. Signatures: Dispatcher [employer] EDSherrie Ray FNP-C FNP-Ckb Verde, Stephanie, RN RN sv Anderson, Corey, MD MD cha Hall, Patricia, RN RN Catie Foster RN RN tw2 Corrections: (The following items were deleted from the chart) 12/31 15:38 15:11 12/31/2018 15:11 Discharged to Home. Impression: Cellulitis of right upper limb. tw2 Condition is Stable. Forms are Medication Reconciliation Form, Thank You Letter, Antibiotic Education, Prescription Opioid Use. Follow up: Emergency Department; When: As needed; Reason: Worsening of condition. Follow up: GIULIANA PEREZ; When: 2 - 3 days; Reason: Recheck today's complaints, Continuance of care, Re-evaluation by your physician. kb
== END 2018-12-31 15:38 | disposition home or self-care (01) ==
LOC: ER 12:54
DX: L03.113 Cellulitis of right upper limb (principal)
CPT/HCPCS: 36415; 80048; 85025; 87040; 96365; 99284

== ENCOUNTER 2019-01-23 10:14 | Emergency (ER) | payer BC ==
--- NOTE | 2019-01-23 10:46 | EDPHYS ---
Physician Documentation [facility] Name: Patrick Randolph Jr Age: 28 yrs Sex: Male : 1990 Arrival Date: 01/23/2019 Time: 10:18 Bed 18 Private MD: GIULIANA PEREZ ED Physician Mayo Guillen HPI: 01/23 10:42 This 28 yrs old Male presents to ER via Ambulatory with complaints of gs Infected Finger. 10:42 Description: The affected area is small, confluent, draining, erythematous. Onset: The gs symptoms/episode began/occurred 5 day(s) ago, and became worse and became persistent. Associated signs and symptoms: Pertinent negatives: fever. Modifying factors: the symptoms are aggravated by touching. Severity of symptoms: At their worst the symptoms were moderate, in the emergency department the symptoms are unchanged. The patient has not experienced similar symptoms in the past. Historical: - Allergies: 10:29 No Known Allergies; tw2 - Home Meds: 10:29 citalopram 40 mg tab 1 tab once daily [Active]; trazodone 150 mg Oral tab nightly tw2 [Active]; - PMHx: 10:29 anger issues; anxiety/ anger issues; insomnia; tw2 - PSHx: 10:29 None; tw2 - Immunization history:: Adult Immunizations. - Social history:: Smoking status: . - Ebola Screening: : Patient denies travel to an Ebola-affected area in the 21 days before illness onset. ROS: 10:42 All other systems are negative. gs Exam: 10:42 Cardiovascular: Regular rate and rhythm with a normal S1 and S2. No gallops, murmurs, gs or rubs. Normal PMI, no JVD. No pulse deficits. Respiratory: Lungs have equal breath sounds bilaterally, clear to auscultation and percussion. No rales, rhonchi or wheezes noted. No increased work of breathing, no retractions or nasal flaring. Neuro: Awake and alert, GCS 15, oriented to person, place, time, and situation. Cranial nerves II-XII grossly intact. Motor strength 5/5 in all extremities. Sensory grossly intact. Cerebellar exam normal. Normal gait. 10:42 Constitutional: The patient appears alert, awake, uncomfortable. 10:42 Musculoskeletal/extremity: ROM: limited active range of motion due to pain, limited passive range of motion due to pain, Circulation is intact in all extremities. Sensation intact. Compartment Syndrome exam of affected extremity: is normal. 10:42 Skin: abscess, that is small, of the dorsal aspect of proximal phalanx of left index finger, with drainage, that is purulent, not tense pretty much completely drained, tender. Vital Signs: 10:30 BP 150 / 95; Pulse 89; Resp 17; Temp 98(TE); Pulse Ox 99% on R/A; Weight 72.57 kg (R); tw2 Pain 7/10; MDM: 10:42 Patient medically screened. 10:42 Differential diagnosis: abscess, cellulitis. Data reviewed: vital signs, nurses notes. ED course: abscess is draining adequately will rx abx continue epsom soaks refer to hand. Administered Medications: 11:00 Drug: Clindamycin 600 mg Route: PO; [facility] 11:14 Follow up: Response: Medication administered at discharge. [facility] 11:10 Drug: [place] 5 mg-325 mg 1 tabs Route: PO; 7 11:14 Follow up: Response: Medication administered at discharge. [facility] Disposition: 01/23/19 10:45 Discharged to Home. Impression: Cutaneous abscess of hand. - Condition is Stable. - Discharge Instructions: Skin Abscess, Cellulitis, Adult, [id number]. - Prescriptions for Clindamycin HCl 300 mg Oral Capsule - take 1 capsule by ORAL route every 6 hours for 7 days; 28 capsule. Tylenol- Codeine #4 300-60 mg Oral Tablet - take 1 tablet by ORAL route every 6 hours As needed; 6 tablet. - Medication Reconciliation Form, Thank You Letter, Antibiotic Education, Prescription Opioid Use form. - Follow up: Charlie Robison MD; When: 2 - 3 days; Reason: Re-evaluation by your physician. Signatures: Catie Foster RN RN tw2 Stan Garay RN RN jl7 Mayo Guillen MD MD Corrections: (The following items were deleted from the chart) 11:16 10:45 01/23/2019 10:45 Discharged to Home. Impression: Cutaneous abscess of hand. jl Condition is Stable. Forms are Medication Reconciliation Form, Thank You Letter, Antibiotic Education, Prescription Opioid Use. Follow up: Charlie Robison; When: 2 - 3 days; Reason: Re-evaluation by your physician. gs
--- NOTE | 2019-01-23 10:46 | ER ---
Nurse's Notes [facility] Name: Patrick Randolph Jr Age: 28 yrs Sex: Male : 1990 Arrival Date: 01/23/2019 Time: 10:18 Bed 18 Private MD: GIULIANA PEREZ Diagnosis: Cutaneous abscess of hand Presentation: 01/23 10:27 Presenting complaint: Patient states: so now i have another abscess on my left hand tw2 first finger that started , i tried to pop it and now it has split open and just keeps getting worse. Transition of care: patient was not received from another setting of care. Onset of symptoms was January 23, 2019. Risk Assessment: Do you want to hurt yourself or someone else? Patient reports no desire to harm self or others. Initial Sepsis Screen: Does the patient meet any 2 criteria? No. Patient's initial sepsis screen is negative. Does the patient have a suspected source of infection? No. Patient's initial sepsis screen is negative. Care prior to arrival: None. 10:27 Method Of Arrival: Ambulatory tw2 10:27 Acuity: JUANITA 3 tw2 Triage Assessment: 10:29 General: Appears in no apparent distress. Behavior is calm, cooperative, appropriate tw2 for age. Pain: Complains of pain in dorsal aspect of middle phalanx of left index finger and dorsal aspect of proximal phalanx of left index finger. Derm: Abscess located on dorsal aspect of middle phalanx of left index finger and dorsal aspect of proximal phalanx of left index finger has purulent drainage, is hot to touch, is red, is raised. Historical: - Allergies: 10:29 No Known Allergies; tw2 - Home Meds: 10:29 citalopram 40 mg tab 1 tab once daily [Active]; trazodone 150 mg Oral tab nightly tw2 [Active]; - PMHx: 10:29 anger issues; anxiety/ anger issues; insomnia; tw2 - PSHx: 10:29 None; tw2 - Immunization history:: Adult Immunizations. - Social history:: Smoking status: . - Ebola Screening: : Patient denies travel to an Ebola-affected area in the 21 days before illness onset. Screenin:45 Abuse screen: Denies threats or abuse. Denies injuries from another. Nutritional jl7 screening: No deficits noted. Tuberculosis screening: No symptoms or risk factors identified. Fall Risk None identified. Assessment: 10:45 General: Appears in no apparent distress. uncomfortable, Behavior is calm, cooperative, jl7 appropriate for age. Pain: Complains of pain in dorsal aspect of proximal phalanx of left index finger Pain currently is 8 out of 10 on a pain scale. Neuro: Level of Consciousness is awake, alert, obeys commands, Oriented to person, place, time, situation. Cardiovascular: Patient's skin is warm and dry. Respiratory: Airway is patent Respiratory effort is even, unlabored, Respiratory pattern is regular, symmetrical. Derm: Skin is pink, warm \T\ dry. Vital Signs: 10:30 BP 150 / 95; Pulse 89; Resp 17; Temp 98(TE); Pulse Ox 99% on R/A; Weight 72.57 kg (R); tw2 Pain 7/10; ED Course: 10:18 Patient arrived in ED. mr 10:19 GIULIANA PEREZ is Private Physician. mr 10:28 Triage completed. tw2 10:28 Arm band placed on. tw2 10:31 Mayo Guillen MD is Attending Physician. gs 10:45 Charlie Robison MD is Referral Physician. gs 10:45 Patient has correct armband on for positive identification. Bed in low position. Call jl7 light in reach. Side rails up X 1. 10:53 Stan Garay, SUZIE is Primary Nurse. jl7 11:15 No provider procedures requiring assistance completed. Patient did not have IV access jl7 during this emergency room visit. Administered Medications: 11:00 Drug: Clindamycin 600 mg Route: PO; jl7 11:14 Follow up: Response: Medication administered at discharge. jl7 11:10 Drug: [place] 5 mg-325 mg 1 tabs Route: PO; jl7 11:14 Follow up: Response: Medication administered at discharge. jl7 Outcome: 10:45 Discharge ordered by . 11:15 Discharged to home ambulatory. jl7 11:15 Condition: stable 11:15 Discharge instructions given to patient, Instructed on discharge instructions, follow up and referral plans. medication usage, Demonstrated understanding of instructions, follow-up care, medications, Prescriptions given X 2. 11:16 Patient left the ED. jl7 Signatures: Feli Collins Tara, RN RN tw2 Stan Garay, RN RN jl7 Mayo Guillen MD MD gs
[2019-01-23] MEDS ORDERED: CLINDAMYCIN HCL 150 MG CAP ONE (11:08)
[2019-01-23] MEDS ORDERED: HYDROCODONE/APAP 5/325 MG TAB ONE (11:19)
== END 2019-01-23 11:16 | disposition home or self-care (01) ==
LOC: ER 10:14
DX: L02.512 Cutaneous abscess of left hand (principal); F41.9 Anxiety disorder, unspecified; R45.4 Irritability and anger
CPT/HCPCS: 99283

== ENCOUNTER 2023-08-15 07:20 | Emergency (ER) | payer BC, SELFPAY ==
--- NOTE | 2023-08-15 07:56 | ER ---
Nurse's Notes [facility] Name: Patrick Randolph Jr Age: 33 yrs Sex: Male : 1990 Arrival Date: 08/15/2023 Time: 07:20 Bed 12 Private MD: Diagnosis: Cellulitis of unspecified part of limb Presentation: 08/15 07:31 Chief complaint: Patient states: I have a little bump on my left arm and it's been iw there for to months, today it's itching an burning. Coronavirus screen: At this time, the client does not indicate any symptoms associated with coronavirus-19. Ebola Screen: Patient negative for fever greater than or equal to 101.5 degrees Fahrenheit, and additional compatible Ebola Virus Disease symptoms Patient denies exposure to infectious person. Patient denies travel to an Ebola-affected area in the 21 days before illness onset. No symptoms or risks identified at this time. Initial Sepsis Screen: Does the patient meet any 2 criteria? No. Patient's initial sepsis screen is negative. Does the patient have a suspected source of infection? No. Patient's initial sepsis screen is negative. Risk Assessment: Do you want to hurt yourself or someone else? Patient reports no desire to harm self or others. Onset of symptoms was May 2023. 07:31 Method Of Arrival: Ambulatory iw 07:31 Acuity: JUANITA 4 iw Historical: - Allergies: 07:33 No Known Allergies; iw - PMHx: 07:33 anger issues; anxiety/ anger issues; insomnia; iw - Immunization history:: Adult Immunizations unknown. - Social history:: Smoking status: unknown. Screenin:[address] [facility] ED Fall Risk Assessment (Adult) Score/Fall Risk Level 0 - 2 = Low Risk. Abuse iw screen: Denies threats or abuse. Denies injuries from another. Nutritional screening: No deficits noted. Tuberculosis screening: No symptoms or risk factors identified. Assessment: 07:36 General: Appears in no apparent distress. Behavior is calm, cooperative. Pain: Denies iw pain. Neuro: Level of Consciousness is awake, alert, obeys commands, Oriented to person, place, time, situation, Moves all extremities. Full function. Cardiovascular: Patient's skin is warm and dry. Respiratory: Airway is patent Respiratory effort is even, unlabored, Respiratory pattern is regular. GI: No signs and/or symptoms were reported involving the gastrointestinal system. Derm: Skin is intact. Musculoskeletal: Range of motion: intact in all extremities. Vital Signs: 07:31 BP 146 / 102; Pulse 81; Resp 16; Temp 97.9; Pulse Ox 98% ; Weight 74.84 kg; Height 5 iw ft. 7 in. ; 07:31 Body Mass Index 25.84 (74.84 kg, 170.18 cm) iw ED Course: 07:23 Patient arrived in ED. mg5 07:32 Luis Antonio Barahona MD is Attending Physician. ec2 07:33 Triage completed. iw 07:33 Arm band placed on. iw 07:36 Kelsy Dove RN is Primary Nurse. iw 07:37 Patient has correct armband on for positive identification. iw 07:37 No provider procedures requiring assistance completed. Patient did not have IV access iw during this emergency room visit. 08:00 Provided Education on: . iw Administered Medications: 08:27 Drug: Doxycycline PO 100 mg PO once Route: PO; iw 08:45 Follow up: Response: No adverse reaction iw Medication: 07:36 VIS not applicable for this client. iw Outcome: 07:55 Discharge ordered by . ec2 08:30 Patient left the ED. iw 08:30 Discharged to home ambulatory, iw 08:30 Condition: good 08:30 Discharge instructions given to patient, Instructed on discharge instructions, follow up and referral plans. Demonstrated understanding of instructions, follow-up care, medications, Prescriptions given X 1, Signatures: Kelsy Dove RN RN [facility] mg5 Luis Antonio Barahona MD MD ec2 Corrections: (The following items were deleted from the chart) 07:33 07:31 Pulse 81bpm; Resp 16bpm; Pulse Ox 98%; Temp 97.9F; 74.84 kg; Height 5 ft. 7 in.; iw BMI: 25.8; iw
--- NOTE | 2023-08-15 07:56 | EDPHYS ---
Physician Documentation [facility] Name: Patrick Randolph Jr Age: 33 yrs Sex: Male : 1990 Arrival Date: 08/15/2023 Time: 07:20 Bed 12 Private MD: ED Physician Luis Antonio Barahona HPI: 08/15 07:53 This 33 yrs old Male presents to ER via Ambulatory with complaints of Arm ec2 Problem. 07:53 Patient arrives today due to concern for lesion on the left forearm. States that he has ec2 had induration for several weeks to months, states that the induration has had some purulent drainage. Patient reports that he most recently drained yesterday. States that what brought him in today is that he noticed some irritation and redness around the area. Patient reports no fevers or chills, no nausea or vomiting, no antibiotic allergy.. Historical: - Allergies: 07:33 No Known Allergies; iw - PMHx: 07:33 anger issues; anxiety/ anger issues; insomnia; iw - Immunization history:: Adult Immunizations unknown. - Social history:: Smoking status: unknown. ROS: 07:53 Constitutional: Skin lesion as above ec2 Exam: 07:53 Constitutional: GEN: NAD Head: atraumatic Eyes: EOMI Ears: External ears are ec2 normal. CV: regular rate LUNGS: no respiratory distress ABD: non-distended SKIN: Left forearm with 0.5 cm 5.5 cm skin lesion without any fluctuance appreciated, firmness/induration noted, mild erythema appreciated, no tracking lymphangitis noted. MSK: no evidence of trauma NEURO: moves all extremities equally Vital Signs: 07:31 BP 146 / 102; Pulse 81; Resp 16; Temp 97.9; Pulse Ox 98% ; Weight 74.84 kg; Height 5 iw ft. 7 in. ; 07:31 Body Mass Index 25.84 (74.84 kg, 170.18 cm) iw MDM: 07:32 Patient medically screened. ec2 07:53 ED course: Patient arrives today due to concern for skin lesion. Examination remarkable ec2 for skin findings as noted above. Will give the patient doxycycline for dose of antibiotics. Presentation appears like a soft tissue skin infection. Considered abscess however this appears to be resolved as the patient expressed purulent fluid himself, no fluctuance appreciated by me. We will treat the patient with doxycycline prescription for the next week. I do not feel patient would benefit from any lab work given the patient's well appearance, lack of toxic symptoms and reassuring vital signs. Patient discharged home, return precautions given.. 07:55 Data reviewed: vital signs. ec2 Administered Medications: 08:27 Drug: Doxycycline PO 100 mg PO once Route: PO; iw 08:45 Follow up: Response: No adverse reaction iw Disposition Summary: 08/15/23 07:55 Discharge Ordered Notes: Location: Home ec2 Condition: Stable ec2 Diagnosis - Cellulitis of unspecified part of limb ec2 Discharge Instructions: - Discharge Summary Sheet ec2 - Cellulitis, Adult ec2 Forms: - Work release form iw - Medication Reconciliation Form ec2 - Thank You Letter ec2 - Antibiotic Education ec2 - Prescription Opioid Use ec2 - Patient Portal Instructions ec2 - Leadership Thank You Letter ec2 Prescriptions: - Doxycycline Hyclate 100 mg Oral tablet - take 1 tablet ORAL route every 12 hours; 14 tablet; Refills: 0, Product ec2 Selection Permitted Signatures: Kelsy Dove, SUZIE RN iw Luis Antonio Barahona MD MD ec2
[2023-08-15] MEDS ORDERED: DOXYCYCLINE 100 MG CAP PO ONE (08:15)
== END 2023-08-15 08:30 | disposition home or self-care (01) ==
LOC: ER 07:20
DX: L03.114 Cellulitis of left upper limb (principal)
CPT/HCPCS: 99283

== ENCOUNTER 2025-02-12 17:17 | Emergency (ER) | payer SELFPAY ==
--- OUTSIDE RECORDS SUMMARY | 2025-02-12 17:20 | XMS REPORT | Continuity of Care Document ---
Author Name Unknown Address [address] [facility] [place] [address] Organization [facility] [place] Address [address] [facility] [address] [place] [address] Care Team Providers Care Building Drafter Name Role Phone PCP, PATIENT DOES NOT HAVE A Primary Care Physic rex Unavailable CARL FERNANDEZ Attending Clinician Unavailab Carl Estrada NP Attending Clinician [phone] CARL FERNANDEZ Admitting Clinician Unavailab le Problems Condition Name Condition Details Condition Category Status Onset Date Resolution Date Last Treatment Date Treating Clinician Comments Source Right groin pain Right groin pain Disease Active 2023-10 0 00:00: 00 [facility] Groin swelling Groin swelling Disease Active 2023-10 0 00:00: 00 [facility] Inguinal strain, right, initial encounter Inguinal strain, right, initial encounter Disease Active 2023-10 0 00:00: 00 [facility] Allergies, Adverse Reactions, Alerts Allergy Name Allergy Type Status Severity Reaction(s) Onset Date Inactive Date Treating Clinician Comments Source NO KNOWN ALLERGIE S Drug Class Active [facility] Social History Social Habit Start Date Stop Date Quantity Comments Source Sexual orientation U [facility] Sex assigned at 1990 00:00:00 1990 00:00:00 [facility] Smoking Status Start Date Stop Date Source Tobacco smoking consumption unknown [facility] Medications Ordered Medication Name Filled Medication Name Start Date Stop Date Current Medication? Ordering Clinician Indication Dosage Frequency Signature (SIG) Comments Components Source ondansetron (ZOFRAN (PF)) injection 4 mg 2023-10 17:30: 00 07-30 17:30 :00 No 4mg 4 mg, Slow IV Push, ONCE, 1 dose, On Tue07/30/24 at 1230, ZOE [facility] morpHINE (4 mg/mL) injection 4 mg 2023-10 17:30: 00 07-30 17:31 :00 No 4mg 4 mg, Slow IV Push, ONCE, 1 dose, On Tue07/30/24 at 1230, STAT [facility] iopamidol (ISOVUE 370-500 mL) injection 80 mL 2023-10 16:27: 00 07-30 16:45 :00 No [id number] 80mL 80 mL, Intravenou s, ONCE, 1 dose, On Tue07/30/24 at 1145, Routine [facility] Vital Signs Vital Name Observation Time Observation Value Comments S ource Systolic blood pressure 2024-07-30 17:45:00 151 mm[Hg] [facility] Diastolic blood pressure 2024-07-30 17:45:00 102 mm[Hg] [facility] Heart rate 2024-07-30 17:45:00 79 /min [facility] Body temperature 2024-07-30 17:45:00 36.61 Riya [facility] Respiratory rate 2024-07-30 17:45:00 14 /min [facility] Oxygen saturation in Arterial blood by Pulse oximetry 2024-07-30 17:45:00 99 /min [facility] Body height 2024-07-30 15:04:00 170.2 cm [facility] Body weight 2024-07-30 15:04:00 72.576 kg [facility] BMI 2024-07-30 15:04:00 25.06 kg/m2 [facility] acute hospital Procedures Procedure Date / Time Performed Performing Clinicia n Source CT PELVIS W CONTRAST 2024-07-30 16:33:12 Dana Fernandez [facility] COMP. METABOLIC PANEL ([id number]) 2024-07-30 15:31:00 Carl Fernandez [facility] CBC WITH DIFF 2024-07-30 15:31:00 [facility] 2024-07-30 15:31:00 [facility] En[facility] Start Date/Time End Date/Time Encounter Type Admission Type Attending [facility] Care Department Encounter ID Source 2024-07-30 10:06:00 2024-07-30 13:02:00 Emergency X CARL FERNANDEZ [facility] ERT [id number] [facility] 2024-07-30 10:06:00 2024-07-30 13:02:00 Emergency Carl Fernandez [facility] [id number] [facility] Results Test Description Test Time Test Comments Results Resul t Comments Source CT PELVIS W CONTRAST 2024-07-30 17:40:41 ORDERING PHYSICIAN: CARL FERNANDEZ. HISTORY: Right groin pain TECHNIQUE: CT pelvis with contrast. ?CT was performed according to ALARA(As Low As Reasonably Achievable). COMPARISON: None FINDINGS: Lymph Nodes: No adenopathy is identified. Arteries: No aneurysms are seen. Small Bowel: There is no free air or focal bowel obstruction. ?No hiatalhernia is present. ?The terminal ileum is normal. Colon: No suspicious masses are identified. ?No inflammatory changes areidentified. Appendix is normal. Bladder: The bladder wall is smooth. Reproductive Organs: Prostate is normal. Osseous Structures: No suspicious lesions are identified. [facility] [id number] 16:01:52* Test Item Value Reference Range Interpretation Comme nts WBC (test code = 6690-2) 11.72 4.20-10.70 H RBC (test code = 789-8) 4.51 4.26-5.52 HGB (test code = 718-7) 14.4 g/dL 12.2-16.4 HCT (test code = 4544-3) 42.6 % 38.4-49.3 MCV (test code = 787-2) 94.5 fL 81.7-95.6 MCH (test code = 785-6) 31.9 pg 26.1-32.7 MCHC (test code = 786-4) 33.8 g/dL 31.2-35.0 RDW-SD (test code = 64211-0) 45.5 fL 38.5-51.6 RDW-CV (test code = 788-0) 13.2 % 12.1-15.4 PLT (test code = 777-3) 305 150-328 MPV (test code = 11589-2) 9.7 fL 9.8-13.0 L NRBC/100 WBC (test code = 8766069146) 0.0 0.0-10.0 NRBC x10^3 (test code = 0149783242) See_Comment [Automated messa ge] The system which generated this result transmitted reference range: 10*3/?L. The reference range was not used to interpret this result as normal/abnormal. GRAN MAT (NEUT) % (test code = 770-8) 56.9 % IMM GRAN % (test code = 1672197929) 0.50 % LYMPH % (test code = 736-9) 33.6 % MONO % (test code = 5905-5) 5.7 % EOS % (test code = 713-8) 2.7 % BASO % (test code = 706-2) 0.6 % GRAN MAT x10^3(ANC) (test code = 4648367522) 6.66 10*3/uL 1.99-6.95 IMM GRAN x10^3 (test code = 7866556589) 0.06 10*3/uL 0.00-0.06 LYMPH x10^3 (test code = 731-0) 3.94 10*3/uL 1.09-3.23 H MONO x10^3 (test code = 742-7) 0.67 10*3/uL 0.36-1.02 EOS x10^3 (test code = 711-2) 0.32 10*3/uL 0.06-0.53 BASO x10^3 (test code = 704-7) 0.07 10*3/uL 0.01-0.09 Lab Interpretation (test code = 43705-4) Abnormal [facility] Notes Date/Time Note Provider Source 2024-07-30 13:01:17 Written/verbal d/c instructions, out of er no distress [facility] 2024-07-30 10:03:28 Patrick Vasquez is a 34 year old male c/o right groin pain, noticed a lump right groin while laying down, no testicular swelling or pain, no flank pain, no dysuria, no fever. Denies injury [facility]
[2025-02-12 18:32] LABS: Absolute Basophils 0.1 K/uL (0-0.5); Absolute Eosinophils 0.3 K/uL (0-0.5); Absolute Lymphocytes (CBC) 3.3 K/uL (0.7-4.9); Absolute Monocytes 0.6 K/uL (0.1-1.3); Basophils % 0.9 % (0-1.3); Eosinophils % 3.1 % (0-4.4); Hematocrit 41.3 % (39.6-49.0); Hemoglobin 14.3 g/dL (13.6-17.9); Lymphocytes % 35.3 % (15.3-44.8); MCH 32.5 pg (27.0-35.0); MCHC 34.7 g/dL (32.0-36.0); MCV 93.7 fL (80-100); MPV 7.5 fL (7.6-11.3); Monocytes % 6.4 % (3.3-12.3); Neutrophils % 54.3 % (41.7-73.7); Nucleated Red Blood Cells % 0.2 % (0-0); Platelets 266 thou/uL (152-406); Red Cell Distribution Width 13.1 % (12.1-15.2)
--- NOTE | 2025-02-12 18:47 | RAD REPORT ---
EXAMINATION: ONE VIEW CHEST XR CLINICAL INDICATION: CHEST PAIN TECHNIQUE: Frontal chest projection is submitted. Examination is limited by patient positioning and t echnique. COMPARISON: No prior exam. FINDINGS: The lungs are well inflated and clear. The heart is upper limit of normal in size. No displaced fract ures identified. IMPRESSION: No acute intrathoracic abnormalities.
[2025-02-12 18:54] LABS: ALT/SGPT 61 U/L (16-61); AST/SGOT 30 U/L (15-37); Albumin 3.8 g/dL (3.4-5.0); Albumin/Globulin Ratio 1.1 (1.1-1.8); Alkaline Phosphatase 80 U/L (45-117); Anion Gap 8.4 mEq/L (5.0-15.0); BUN Blood Urea Nitrogen 17 mg/dL (7-18); Bicarbonate 25 mEq/L (21-32); Bilirubin Total 0.2 mg/dL (0.2-1.0); Globulin 3.5 g/dL (2.3-3.5); Glomerular Filtration Rate 115 ml/min (=/>90); Glucose Level 90 mg/dL (74-106); Magnesium 2.4 mg/dL (1.6-2.4); NT PRO-BNP 16 pg/mL (<125); Potassium 4.4 mEq/L (3.5-5.1); Protein, Total 7.3 g/dL (6.4-8.2); Sodium Level 135 mEq/L (136-145); Troponin High Sensitivity 3.1 pg/mL (<58.9)
[2025-02-12 18:55] LABS: Bilirubin Direct < 0.2 mg/dL (0-0.2)
--- NOTE | 2025-02-12 20:06 | RAD REPORT ---
EXAMINATION:Upper Ext Artery Uni Timothy CLINICAL INDICATION: Male, 34 years old. NUMBNESS/TINGLING RIGHT TECHNIQUE: Arterial duplex ultrasound was performed of the right upper extremity with real-time, colo r-flow, and spectral wave Doppler evaluation. COMPARISON: No prior exam. FINDINGS: Waveforms and velocities right upper extremity arterial system within normal limits. No significant f low abnormality or stenosis. IMPRESSION: No significant flow abnormality detected.
--- NOTE | 2025-02-12 20:25 | EDPHYS ---
Physician Documentation [facility] Name: Patrick Randolph Jr Age: 34 yrs Sex: Male : 1990 Arrival Date: 02/12/2025 Time: 17:17 Bed 16 Private MD: ED Physician Ben Ambrose HPI: 02/12 17:29 This 34 yrs old Male presents to ER via Unassigned with complaints of chest pain. kb 17:29 Pt is a 34 year old male who presents for numbness and tingling to right arm that has kb been intermittent for one week and left sided chest pain that has been intermittent for a couple of days. Denies shortness of breath. . Historical: - Allergies: 17:41 No Known Allergies; cm10 - PMHx: 17:41 anger issues; anxiety/ anger issues; insomnia; cm10 - Immunization history:: Adult Immunizations up to date. - Infectious Disease History:: Denies. - Social history:: Smoking status: Patient reports the use of cigarette tobacco products, denies chronic smoking, but will smoke occasionally. ROS: 17:32 Constitutional: As per HPI kb Exam: 17:32 Constitutional: This is a well developed, well nourished patient who is awake, alert, kb and in no acute distress. Head/Face: Normocephalic, atraumatic. ENT: Moist Mucous membranes Cardiovascular: Regular rate Respiratory: Respirations even and unlabored. No increased work of breathing. Talking in full sentences Abdomen/GI: Soft, non-tender. No distention Skin: Warm, dry with normal turgor. Normal color. MS/ Extremity: Pulses equal, no cyanosis. Neurovascular intact. Full, normal range of motion. Neuro: Awake and alert, GCS 15, oriented to person, place, time, and situation. 18:41 ECG was reviewed by the Attending Physician. kb Vital Signs: 17:40 BP 161 / 109; Pulse 81; Resp 15; Temp 98.6; Pulse Ox 99% on R/A; Weight 72.57 kg; cm10 Height 5 ft. 7 in. ; Pain 00/10; 18:16 BP 139 / 99; Pulse 75; Resp 20; Pulse Ox 97% ; me1 19:00 BP 141 / 106; Pulse 79; Resp 19; Pulse Ox 97% ; me1 19:30 BP 141 / 95; Pulse 78; Resp 19; Pulse Ox 97% ; me1 20:00 BP 133 / 96; Pulse 75; Resp 22; Pulse Ox 97% ; me1 20:00 BP 136 / 95; Pulse 76; Resp 16; Temp 98.1; Pulse Ox 100% ; me1 17:40 Body Mass Index 25.06 (72.57 kg, 170.18 cm) cm10 17:40 Pain Scale: Adult cm10 MDM: 17:20 Medical Screening Exam initiated kb 20:12 Data reviewed: vital signs, nurses notes. kb 20:23 Differential diagnosis: abnormal EKG, acute myocardial infarction, chest wall pain, kb costochondritis. Counseling: I had a detailed discussion with the patient and/or guardian regarding the historical points, exam findings, and any diagnostic results supporting the discharge/admit diagnosis, lab results, radiology results, the need for outpatient follow up, a family practitioner, to return to the emergency department if symptoms worsen or persist or if there are any questions or concerns that arise at home. 02/12 17:56 Order name: Basic Metabolic Panel; Complete Time: 18:56 kb 02/12 17:56 Order name: CBC with Diff; Complete Time: 19:01 kb 02/12 17:56 Order name: LFT's; Complete Time: 18:56 kb 02/12 17:56 Order name: Magnesium; Complete Time: 18:56 kb 02/12 17:56 Order name: NT PRO-BNP; Complete Time: 18:56 kb 02/12 17:56 Order name: Troponin HS; Complete Time: 18:56 kb 02/12 17:56 Order name: XRAY Chest (1 view); Complete Time: 18:52 kb 02/12 19:18 Order name: Upper Ext Artery Uni Timothy; Complete Time: 20:12 EDMS 02/12 17:56 Order name: EKG; Complete Time: 17:57 kb 02/12 17:56 Order name: Cardiac monitoring; Complete Time: 18:08 kb 02/12 17:56 Order name: EKG - Nurse/Tech; Complete Time: 18:08 kb 02/12 17:56 Order name: IV Saline Lock; Complete Time: 18:24 kb 02/12 17:56 Order name: Labs collected and sent; Complete Time: 18:24 kb 02/12 17:56 Order name: O2 Per Protocol; Complete Time: 18:24 kb 02/12 17:56 Order name: O2 Sat Monitoring; Complete Time: 18:24 kb EC:41 Rate is 80 beats/min. Rhythm is regular. QRS Ennis is Normal. TN interval is normal at kb 172 msec. QRS interval is normal at 102 msec. QT interval is normal at 426 msec. Administered Medications: No medications were administered Disposition Summary: 02/12/25 20:24 Discharge Ordered Notes: Location: Home kb Condition: Stable kb Diagnosis - Chest pain, unspecified kb Followup: kb - With: Emergency Department - When: As needed - Reason: Worsening of condition Followup: kb - With: Private Physician - When: 2 - 3 days - Reason: Recheck today's complaints, Continuance of care, Re-evaluation by your physician Discharge Instructions: - Discharge Summary Sheet kb - Nonspecific Chest Pain, Adult, [id number] kb Forms: - Medication Reconciliation Form kb - Antibiotic Education kb - Prescription Opioid Use kb - Patient Portal Instructions kb - Leadership Thank You Letter kb Signatures: Dispatcher [employer] EDSherrie Ray FNP-Nat MCLEOD-Christina Gallegos RN RN cm10 Corrections: (The following items were deleted from the chart) 17:57 17:57 BASIC METABOLIC PANEL+C.LAB.BRZ ordered. EDMS EDMS 17:57 17:57 CBC+H.LAB.BRZ ordered. EDMS EDMS 17:57 17:57 HEPATIC FUNCTION+C.LAB.BRZ ordered. EDMS EDMS 17:57 17:57 MAGNESIUM+C.LAB.BRZ ordered. EDMS EDMS 17:57 17:57 PROBNP+C.LAB.BRZ ordered. EDMS EDMS 17:57 17:57 Troponin High Sensitivity+C.LAB.BRZ ordered. EDMS EDMS 19:08 19:08 Lower Extremity Artery Uni Ltd+US.RAD.BRZ ordered. EDMS EDMS
--- NOTE | 2025-02-12 20:25 | ER ---
Nurse's Notes [facility] Name: Patrick Randolph Jr Age: 34 yrs Sex: Male : 1990 Arrival Date: 02/12/2025 Time: 17:17 Bed 16 Private MD: Diagnosis: Chest pain, unspecified Presentation: 02/12 17:40 Chief complaint: Patient states: Numbness and tingling to right arm onset 1 week ago. cm10 pt also reports left sided chest pain onset 2 days ago. Coronavirus screen: Client denies travel out of the [place] in the last 14 days. Ebola Screen: Patient denies travel to an Ebola-affected area in the 21 days before illness onset. Initial Sepsis Screen: Does the patient meet any 2 criteria? No. Patient's initial sepsis screen is negative. Does the patient have a suspected source of infection? No. Patient's initial sepsis screen is negative. Risk Assessment: Do you want to hurt yourself or someone else? Patient reports no desire to harm self or others. Onset of symptoms was February 12, 2025. 17:40 Method Of Arrival: Ambulatory cm10 17:40 Acuity: JUANITA 3 cm10 Triage Assessment: 17:41 General: Appears in no apparent distress. comfortable, Behavior is calm, cooperative. cm10 Neuro: No deficits noted. Level of Consciousness is awake, alert, obeys commands, Oriented to person, place, time, situation, Appropriate for age. Respiratory: No deficits noted. Airway is patent Respiratory effort is even, unlabored, Respiratory pattern is regular, symmetrical. Historical: - Allergies: 17:41 No Known Allergies; cm10 - PMHx: 17:41 anger issues; anxiety/ anger issues; insomnia; cm10 - Immunization history:: Adult Immunizations up to date. - Infectious Disease History:: Denies. - Social history:: Smoking status: Patient reports the use of cigarette tobacco products, denies chronic smoking, but will smoke occasionally. Screenin:40 [facility] ED Fall Risk Assessment (Adult) History of falling in the last 3 months, me1 including since admission No falls in past 3 months (0 pts) Confusion or Disorientation No (0 pts) Intoxicated or Sedated No (0 pts) Impaired Gait No (0 pts) Mobility Assist Device Used No (0 pt) Altered Elimination No (0 pt) Score/Fall Risk Level 0 - 2 = Low Risk Maintained a safe environment, Provided non-skid footwear, Hourly rounding (assess needs \T\ fall precautionary measures) done. Abuse screen: Denies threats or abuse. Nutritional screening: No deficits noted. Tuberculosis screening: No symptoms or risk factors identified. Assessment: 17:40 General: Appears in no apparent distress. well groomed, well developed, well nourished, me1 Behavior is calm, cooperative, appropriate for age, Reports Numbness and tingling to right arm onset 1 week ago. pt also reports left sided chest pain onset 2 days ago. Pain: Complains of pain in chest Pain does not radiate. Pain currently is 3 out of 10 on a pain scale. at worst was 5 out of 10 on a pain scale. Quality of pain is described as sharp, Pain began suddenly, Is intermittent. Neuro: Level of Consciousness is awake, alert, obeys commands, Oriented to person, place, time, situation, Appropriate for age. Cardiovascular: Reports chest pain, shortness of breath, Patient's skin is warm and dry. Respiratory: Reports shortness of breath at rest on exertion Airway is patent Respiratory effort is even, unlabored, Respiratory pattern is regular, symmetrical. GI: No signs and/or symptoms were reported involving the gastrointestinal system. : No signs and/or symptoms were reported regarding the genitourinary system. EENT: No signs and/or symptoms were reported regarding the EENT system. Derm: Skin is intact, is healthy with good turgor, Skin is pink, warm \T\ dry. Musculoskeletal: No signs and/or symptoms reported regarding the musculoskeletal system. Vital Signs: 17:40 BP 161 / 109; Pulse 81; Resp 15; Temp 98.6; Pulse Ox 99% on R/A; Weight 72.57 kg; cm10 Height 5 ft. 7 in. ; Pain 00/10; 18:16 BP 139 / 99; Pulse 75; Resp 20; Pulse Ox 97% ; me1 19:00 BP 141 / 106; Pulse 79; Resp 19; Pulse Ox 97% ; me1 19:30 BP 141 / 95; Pulse 78; Resp 19; Pulse Ox 97% ; me1 20:00 BP 133 / 96; Pulse 75; Resp 22; Pulse Ox 97% ; me1 20:00 BP 136 / 95; Pulse 76; Resp 16; Temp 98.1; Pulse Ox 100% ; me1 17:40 Body Mass Index 25.06 (72.57 kg, 170.18 cm) cm10 17:40 Pain Scale: Adult cm10 ED Course: 17:20 Patient arrived in ED. kb 17:20 Sherrie Basilio F[facility]-C is [facility]. kb 17:20 Ben Ambrose MD is Attending Physician. kb 17:40 Patient has correct armband on for positive identification. Bed in low position. Call me1 light in reach. Side rails up X2. Provided Education on: POC. Verbalized understanding.. Client placed on continuous cardiac and pulse oximetry monitoring. NIBP monitoring applied. corrective and manual arts therapist on. Pulse ox on. NIBP on. 17:40 No provider procedures requiring assistance completed. Patient maintains SpO2 me1 saturation greater than 95% on room air. 17:41 Triage completed. cm10 17:41 Arm band placed on right wrist. Patient placed in an exam room, on a stretcher. cm10 18:00 Cathi Jimenez, RN is Primary Nurse. me1 18:09 EKG done, by ED staff, reviewed by Sherrie BENSON. me1 18:24 Basic Metabolic Panel Sent. me1 18:24 CBC with Diff Sent. me1 18:24 LFT's Sent. me1 18:24 Magnesium Sent. me1 18:24 NT PRO-BNP Sent. me1 18:24 Troponin HS Sent. me1 18:24 Initial lab(s) drawn, by ia, sent to lab. Inserted saline lock: 22 gauge in left me1 antecubital area, using aseptic technique. 18:45 XRAY Chest (1 view) In Process Unspecified. EDMS 20:01 Upper Ext Artery Uni Timothy In Process Unspecified. EDMS 20:47 IV discontinued, intact, bleeding controlled, No redness/swelling at site. Pressure me1 dressing applied. Administered Medications: No medications were administered Medication: 17:40 VIS not applicable for this client. me1 Outcome: 20:24 Discharge ordered by . kb 20:47 Discharged to home ambulatory, me1 20:47 Condition: stable 20:47 Discharge instructions given to patient, Instructed on discharge instructions, follow up and referral plans. Demonstrated understanding of instructions, follow-up care, 20:48 Patient left the ED. me1 Signatures: Dispatcher [employer] Sherrie Palacios, MEDIA/INSTRUCTIONAL DESIGNER-C Christina Cervantes RN RN cm10 Cathi Jimenez RN RN me1 Corrections: (The following items were deleted from the chart) 18:40 17:40 Chief complaint: Patient states: Numbness and tingling to right arm onset 1 week me1 ago. pt also reports left sided chest pain onset 2 days ago. cm10
[2025-02-12 21:42] VITALS: BP 136/95; TEMP 98.1; O2SAT 100
--- NOTE | 2025-02-13 12:35 | EKG ---
Test Date: 2025-02-12 Test Time: 18:03:45 Front End Driver: MEASUREMENT RESULTS: Intervals: Rate: 80 KS: 172 QRSD: 102 QT: 370 QTc: 426 [place]: P: 70 KS: 172 QRS: 82 T: 55 INTERPRETIVE STATEMENTS: Normal sinus rhythm Incomplete right bundle branch block Borderline ECG No previous ECG available for comparison Electronically Signed On 02-13-25 12:35:18 CDT by Raudel Clarke
== END 2025-02-12 20:48 | disposition home or self-care (01) ==
LOC: ER 17:17
DX: R07.9 Chest pain, unspecified (principal); F41.9 Anxiety disorder, unspecified; F17.210 Nicotine dependence, cigarettes, uncomplicated
CPT/HCPCS: 36415; 71045; 80048; 80076; 83735; 83880; 84484; 85025; 93005; 93931; 99284